=== PATIENT | female | born 1960 | race Caucasian/White ===

== ENCOUNTER 2024-09-21 11:27 | Emergency (ER) | payer BC, SELFPAY ==
[2024-09-21 12:26] LABS: % Basophils 0.5 % (0-2); % Eosinophils 2.2 % (0-6); % Immature Granulocytes 0.4 % (0-0.5); % Lymphocytes 10.8 % (20.5-51.1); % Monocytes 10.7 % (1.7-9.3); % Neutrophils 75.4 % (42.2-75.2); Absolute Eosinophils 0.2 10^3/uL (0-0.7); Absolute Lymphocytes 0.9 10^3/uL (1.2-3.4); Absolute Monocytes 0.9 10^3/uL (0.1-0.6); Absolute Neutrophils 6.4 10^3/uL (1.4-6.5); Hematocrit 40.5 % (37.0-47.0); Hemoglobin 13.4 g/dL (12.0-16.0); Mean Corp Hgb Conc. 33.1 g/dL (33.0-37.0); Mean Corpuscular Hgb 31.5 pg (27.0-31.0); Mean Corpuscular Volume 95.3 fL (81.0-99.0); Mean Platelet Volume 9.9 fL (7.4-10.4); Nucleated Red Blood Cells % 0 %; Platelet Count 265 10^3/uL (130-400); Red Blood Cell Count 4.25 10^6/uL (4.20-5.40); Red Cell Dist. Width 13.6 % (11.5-14.5); White Blood Cell Count 8.5 10^3/uL (4.8-10.8)
[2024-09-21 12:27] LABS: Urine Albumin Trace (Neg - Trace); Urine Bilirubin Negative (Negative); Urine Character Clear (Clear); Urine Color Yellow; Urine Glucose Negative (Negative); Urine Ketone Negative (Negative); Urine Leukocyte 1+ (Negative); Urine Nitrite Negative (Negative); Urine Occult Blood Negative (Negative); Urine Urobilinogen Negative (Neg - 1+)
[2024-09-21 12:35] LABS: ALT (SGPT) 44 U/L (0-35); AST (SGOT) 29 U/L (14-36); Albumin 4.5 g/dl (3.5-5.0); Alkaline Phosphatase 67 U/L (38-126); Blood Urea Nitrogen 18 mg/dl (7-17); Calcium 9.3 mg/dl (8.4-10.2); Carbon Dioxide 27 mmol/L (22-30); Chloride 103 mmol/L (98-107); Glucose 106 mg/dl (70-99); Potassium 4.7 mmol/L (3.5-5.1); Sodium 138 mmol/L (135-145); Total Bilirubin 0.7 mg/dl (0.2-1.3); Total Protein 7.7 g/dl (6.3-8.2); eGFR > 60.00
[2024-09-21 12:45] LABS: Urine Bacteria Few (Negative); Urine Red Blood Cell 0-2 /HPF (0-2); Urine Squamous Cell 16-20 /LPF (Few)
--- NOTE | 2024-09-21 15:05 | ED.GENMED ---
History of Present Illness
General
Chief Complaint: Abdominal Symptoms
Time Seen by Provider: 09/21/24 14:54
History of Present Illness
History of Present Illness:
Patient is a 64-year-old woman with history of A-fib on Eliquis, hypertension, hyperlipidemia presenting to the emergency department left lower quadrant abdominal pain for the past 2 days. Patient states that about a week ago she came from [place]
which is where she lives and had some vague back pain. She thought she has pulled a muscle. That did not resolve however she then developed left lower quadrant pain. She denies any nausea vomiting. She had diarrhea a few days ago after she ate a
meal prep an outside restaurant. She states that since then her bowel movements have been normal. No fevers or chills. No family members with similar symptoms. No recent antibiotics. She did have her gallbladder removed however no other
surgeries. She does state that when her bladder is more full she does have slightly more pain however denies any frequency or urgency.
Phy Exam
Physical Exam
Physical Exam:
GENERAL: in no acute distress
HEENT: normocephalic, extraocular movements intact, moist oral mucosa
NECK: normal inspection
RESPIRATORY: no respiratory distress, clear to auscultation bilaterally
CARDIOVASCULAR: regular rate and rhythm
ABDOMEN/: soft, non-distended, tender to palpation in left lower quadrant, no rebound or guarding, no CVA tenderness
EXTREMITIES: non-tender, no edema/swelling
NEUROLOGIC: awake and alert, moves all extremities
SKIN: warm
Course
Orders/Labs/Results
Orders:
Orders
09/21/24 12:02
Urinalysis Reflex To Culture Urgent
Date Specimen was Collected: 09/21/24
Time Specimen was Collected: 11:57
Urine Microscopic Reflex Cult Urgent
Urine Culture Urgent
LUCY Source: U
Specimen Description:
Date Specimen was Collected: 09/21/24
Time Specimen was Collected: 11:57
09/21/24 12:03
Complete Blood Count/With Diff Urgent
Comprehensive Metabolic Panel Urgent
09/21/24 15:04
CT Abd/pelvis W Iv Cont Urgent
Comment:
Reason For Exam: llq pain
09/21/24 15:40
Urinalysis Reflex To Culture Urgent
Date Specimen was Collected: 09/21/24
Time Specimen was Collected: 15:24
Urine Microscopic Reflex Cult Urgent
Abnormal Lab Results
09/21/24 09/21/24 09/21/24
12:02 12:03 15:40
MCH 31.5 H pg
(27.0-31.0)
Absolute Lymphs (auto) 0.9 L 10^3/uL
(1.2-3.4)
Absolute Monos (auto) 0.9 H 10^3/uL
(0.1-0.6)
Neutrophils % 75.4 H %
(42.2-75.2)
Lymphocytes % 10.8 L %
(20.5-51.1)
Monocytes % 10.7 H %
(1.7-9.3)
BUN 18 H mg/dl
(7-17)
Glucose 106 H mg/dl
(70-99)
ALT 44 H U/L
(0-35)
Leukocyte Esterase Rfl 1+ A Trace A
(Negative) (Negative)
Urine Bacteria (Reflex) Few A
(Negative)
09/21/24 12:03
09/21/24 12:03
Vital Signs
Initial and Last Documented VS:
Initial Vital Signs
Temp Pulse Resp Pulse Ox
98.1 F 87 16 98
09/21/24 11:51 09/21/24 11:51 09/21/24 11:51 09/21/24 11:51
Last Documented Vital Signs
Temp Pulse Resp BP Pulse Ox
98.5 F 73 20 152/76 100
12/24/24 15:44 09/21/24 15:44 09/21/24 15:44 09/21/24 15:44 09/21/24 15:44
MDM/Problems Addressed
Differential Diagnosis Includes:
Patient is a 64-year-old woman presenting to the emergency department 2 days of left lower quadrant abdominal pain. Vitals are unremarkable and exam does show left lower quadrant tenderness to palpation. Differential consists of diverticulitis
versus enteritis versus UTI. Will check blood work CT scan. I did offer pain control as well as antiemetics however patient would hold off at this time
*Critical Care Note
Total Time (30-74mins, 75-104mins- exclusive of procedures): Not Applicable
Update Note
Update Note:
CT scan with diverticulitis. After shared decision making we will start treatment with antibiotics.
ED Attending Note
-
Portions of this chart may have been created with voice recognition software.� Occasional wrong word or��sound alike� substitutions may have occurred due to the inherent limitations of voice recognition software.
Discharge Plan
Departure
Patient Disposition: Home (Routine Discharge)
Date of Disposition: 09/21/24
Time of Disposition: 16:44
Patient with high blood pressure during this ER visit?: Yes
Discharge Problem:
Diverticulitis
Instructions: Diverticulitis - Discharge instructions
Prescriptions:
New
amoxicillin-pot clavulanate 875-125 mg tablet
1 tab PO BID 7 Days Qty: 14 0RF
Referrals:
PRIVATE,PHYSICIAN [Family Provider] -
Activity Restrictions/Additional Instructions:
You were seen in the Emergency Department today for abdominal pain. While you were here we performed blood work, which was reassuring. Please take the antibiotics as prescribed
We would like for you to follow up with your primary care physician for further evaluation. If you experience fever, worsening of your symptoms, or develop any other new or concerning symptoms, please return to the Emergency Department immediately.
Please see the attached sheet for additional information.
Interventions
Interventions:
*Risk Screen - Suicide Last Done: 09/21/24 11:51
*General Assessment Last Done: 09/21/24 15:44
*Neglect/Abuse Screening Last Done: 09/21/24 11:51
ED- Fall Risk Assessment Last Done: 09/21/24 15:44
*ED COVID-19 Vaccine History Last Done: 09/21/24 15:44
EW-Xzizua-Ugqoxygvxg Assessment Last Done: 09/21/24 15:44
Discharge Date and Time
Print Language: GREEK
[2024-09-21 15:26] VITALS: BMI 34.4
[2024-09-21 15:44] VITALS: BP 152/76
[2024-09-21 16:02] LABS: Urine Albumin Negative (Neg - Trace); Urine Bilirubin Negative (Negative); Urine Character Clear (Clear); Urine Color Yellow; Urine Glucose Negative (Negative); Urine Ketone Negative (Negative); Urine Leukocyte Trace (Negative); Urine Nitrite Negative (Negative); Urine Occult Blood Negative (Negative); Urine Urobilinogen Negative (Neg - 1+)
[2024-09-21 16:32] LABS: Urine Red Blood Cell 0-2 /HPF (0-2)
== END 2024-09-21 17:32 | disposition home or self-care (01) ==
LOC: EMR 11:27
PROVIDERS: Emergency Medicine; EMERGENCY PHYSICIAN Student in an Organized Health Care Education/Training Program
DX: K57.32 Diverticulitis of large intestine without perforation or abscess without bleeding (principal); I10 Essential (primary) hypertension; E78.5 Hyperlipidemia, unspecified; I48.91 Unspecified atrial fibrillation; Z79.01 Long term (current) use of anticoagulants; Z90.49 Acquired absence of other specified parts of digestive tract
CPT/HCPCS: 99284; 74177; 80053; 81003; 81015; 85025; 87086; Q9967

== ENCOUNTER 2025-04-13 13:27 | Emergency (ER) | payer MEDICARE, SELFPAY ==
[2025-04-13 13:27] VITALS: BMI 36.0
[2025-04-13 13:34] VITALS: BP 158/77
[2025-04-13 14:18] VITALS: BP 146/76
[2025-04-13 14:35] LABS: Urine Character Clear (Clear)
[2025-04-13 14:36] LABS: Hematocrit 35.4 % (37.0-47.0); Hemoglobin 12.0 g/dL (12.0-16.0); Mean Corp Hgb Conc. 33.9 g/dL (33.0-37.0); Mean Corpuscular Volume 92.4 fL (81.0-99.0); Nucleated Red Blood Cells % 0 %; Platelet Count 220 10^3/uL (130-400); Red Cell Dist. Width 12.9 % (11.5-14.5)
[2025-04-13 14:57] LABS: ALT (SGPT) 31 U/L (0-35); AST (SGOT) 25 U/L (14-36); Albumin 4.0 g/dl (3.5-5.0); Alkaline Phosphatase 77 U/L (38-126); Blood Urea Nitrogen 11 mg/dl (7-17); Calcium 9.3 mg/dl (8.4-10.2); Carbon Dioxide 24 mmol/L (22-30); Chloride 110 mmol/L (98-107); Estimated Creatinine Clearance 105 ml/min; Glucose 111 mg/dl (70-99); Potassium 3.9 mmol/L (3.5-5.1); Sodium 137 mmol/L (135-145); Total Protein 7.0 g/dl (6.3-8.2); eGFR > 60.00
--- NOTE | 2025-04-13 15:26 | ED.GENMED ---
History of Present Illness
General
Chief Complaint: Headache
Source: patient
Exam Limitations: none
Time Seen by Provider: 04/13/25 14:04
Nursing documentation reviewed up to this point in time: agreed with
History of Present Illness
History of Present Illness:
65 yo female w h/o Afib on Eliquis, scheduled for [facility], HTN, HLD, cholecystectomy, presents for pain left side head pain and throbbing behind left eye for past three days. She gets some relief with Advil 400 mg last dose 10 a.m. Has felt 'a
little' nausea at times, none now.
Pt is visiting from [place], staying with her daughter for 2 months, helping take care of her 2 toddler children. No recent head injury. No history of headaches. Denies change in vision. Denies weakness, numbness, tingling in extremities.
Has also been urinating a lot more than usual lately
Meds:
Zetia
Amlodipine 5 mg
Eliquis
Metoprolol 12.5 mg prn palpitation.
Past History
Past History
ED Past Medical History: Arrthythmia (A-fib on Eliquis), Hypercholesterolemia and NIDDM
ED Past Surgical History: Cardiac (Cardiac ablation) and Cholecystectomy
Social History
Tobacco: Non-smoker
Alcohol: None
Personal: Single
Living: alone
Review of Systems
Review of Systems
Allergies reviewed?: Yes
All Other Systems: ROS reviewed and negative except as documented in HPI and ROS
Respiratory: Denies trouble breathing
Cardiac: Denies chest pain
ABD/GI: Reports nausea (Mild intermittent); Denies abdominal pain or vomiting
: Reports frequency; Denies dysuria
Musculoskeletal: Reports no symptoms
Skin: Reports no symptoms
Neurological: Reports headache; Denies dizzy, weakness or numbness
Phy Exam
Physical Exam
Physical Exam:
GENERAL: No acute distress. A&Ox3.
CONSTITUTIONAL: Afebrile.
Head: No scalp tenderness to palpation.
EYES: clear, conjunctivae normal
ENMT: moist mucus membranes, Pharynx nl
RESPIRATORY: Regular respirations, nonlabored, lungs clear.
CARDIOVASCULAR: Regular rate and rhythm, no murmurs, no rubs.
GI: Soft, nontender, normal BS
MUSCULOSKELETAL: Moves with ease. Well perfused.
SKIN: Warm, dry, pink
PSYCH: Normal mood and affect. Well kept, interactive and appropriate
NEUROLOGIC: Awake, alert and oriented. Speech clear. Cranial nerves II through XII intact. Finger-nose intact. Ambulates well with steady gait. No focal neurological deficits
Course
Orders/Labs/Results
Orders:
Orders
04/13/25 14:25
CT Head W/o Iv Contrast Urgent
Comment:
Reason For Exam: left parietal head pain
04/13/25 14:27
Complete Blood Count/With Diff Urgent
Comprehensive Metabolic Panel Urgent
Lyme Progressive Urgent
Urinalysis Reflex To Culture Urgent
Date Specimen was Collected: 04/13/25
Time Specimen was Collected: 14:26
04/13/25 16:17
Acetaminophen [Tylenol] 1,000 mg PO NOW STA
Abnormal Lab Results
04/13/25
14:27
RBC 3.83 L 10^6/uL
(4.20-5.40)
Hct 35.4 L %
(37.0-47.0)
MCH 31.3 H pg
(27.0-31.0)
MPV 10.6 H fL
(7.4-10.4)
Absolute Neuts (auto) 7.5 H 10^3/uL
(1.4-6.5)
Absolute Lymphs (auto) 1.0 L 10^3/uL
(1.2-3.4)
Absolute Monos (auto) 1.0 H 10^3/uL
(0.1-0.6)
Neutrophils % 77.3 H %
(42.2-75.2)
Lymphocytes % 10.8 L %
(20.5-51.1)
Monocytes % 10.1 H %
(1.7-9.3)
Chloride 110 H mmol/L
(98-107)
Glucose 111 H mg/dl
(70-99)
04/13/25 14:27
04/13/25 14:27
Vital Signs
Initial and Last Documented VS:
Initial Vital Signs
Temp Pulse Resp BP Pulse Ox
98.9 F 80 16 158/77 98
04/13/25 13:34 04/13/25 13:34 04/13/25 13:34 04/13/25 13:34 04/13/25 13:34
Last Documented Vital Signs
Temp Pulse Resp BP Pulse Ox
98.1 F 70 16 146/76 90
04/13/25 16:00 04/13/25 16:00 04/13/25 16:00 04/13/25 14:18 04/13/25 17:00
MDM/Problems Addressed
Differential Diagnosis Includes:
Stress/tension headache, migraine, brain tumor, hemorrhage
MDM/Problems Addressed:
65 yo female w h[facility] on [facility], scheduled for [facility], HTN, HLD, cholecystectomy, presents for pain left side head pain and throbbing behind left eye for past three days. She gets some relief with Advil 400 mg last dose 10 a.m. Has felt 'a
little' nausea at times, none now.
Pt is visiting from [place], staying with her daughter for 2 months, helping take care of her 2 toddler children. No recent head injury. No history of headaches. Denies change in vision. Denies weakness, numbness, tingling in extremities.
Has also been urinating a lot more than usual lately
No infectious symptoms
CBC with no clinically significant abnormality
CMP normal
UA negative
4:15 PM:
Pt updated on results and plan
Patient is awaiting head CT, headache is now 5/10, Tylenol ordered
6:00 p.m.
Pt states headache is now minimal , Tylenol helped
Head CT neg
Copy of report given to pt
Referred to Neurology as needed
Pt ambulated out with normal gait at discharge
*Pulse Oximetry
SaO2: 93
Oxygen Mode of Delivery: Room air
Patient hypoxic: not evaluated
*Critical Care Note
Total Time (30-74mins, 75-104mins- exclusive of procedures): Not Applicable
ED Attending Note
-
Portions of this chart may have been created with voice recognition software.� Occasional wrong word or��sound alike� substitutions may have occurred due to the inherent limitations of voice recognition software.
Discharge Plan
Departure
Patient Disposition: Home (Routine Discharge)
Date of Disposition: 04/13/25
Time of Disposition: 18:02
Patient with high blood pressure during this ER visit?: No
Condition: Good
Discharge Problem:
Headache
Instructions: Migraines (DC), Headache, Adult (DC)
Prescriptions:
No Action
amoxicillin-pot clavulanate 875-125 mg tablet
1 tab PO BID 7 Days Qty: 14 0RF
Referrals:
Jonel Hutchinson MD [Active, Neurology] - As needed
NONE,* [Family Provider, Internal Medicine]
Activity Restrictions/Additional Instructions:
As we discussed, your workup here today shows nothing worrisome. Your CAT scan shows no abnormality.
Tylenol 1000 mg up to 3 times a day as needed for headache
Make an appointment with a neurologist if your headaches persist.
Interventions
Interventions:
*Risk Screen - Suicide Last Done: 04/13/25 13:34
*General Assessment Last Done: 04/13/25 13:34
*Neglect/Abuse Screening Last Done: 04/13/25 13:34
*ED- Fall Risk Assessment Last Done: 04/13/25 13:34
*ED COVID-19 Vaccine History Last Done: 04/13/25 13:34
*Nursing Disposition Last Done: 04/13/25 18:12
ED- Neurological Assessment Last Done: 04/13/25 13:44
Discharge Date and Time
Discharge Date/Time: 04/13/25 18:13
Print Language: SCOTTISH
[2025-04-13] MEDS: TYLENOL 1000 MG PO (16:36)
[2025-04-14 12:46] LABS: Lyme Antibody Screen, EIA Negative (Negative)
== END 2025-04-13 18:13 | disposition home or self-care (01) ==
LOC: EMR 13:27
PROVIDERS: Registered Nurse; EMERGENCY PHYSICIAN Emergency Medicine
DX: R51.9 Headache, unspecified (principal); Z79.01 Long term (current) use of anticoagulants; E11.9 Type 2 diabetes mellitus without complications; E78.00 Pure hypercholesterolemia, unspecified; Z90.49 Acquired absence of other specified parts of digestive tract
CPT/HCPCS: 99284; 70450; 80053; 81003; 85025; 86618

== ENCOUNTER 2025-05-04 23:53 | Inpatient (IN) | payer MEDICARE, SELFPAY ==
[2025-05-04] VITALS (16 sets, daily range): BP systolic 117–145; BP diastolic 77–132; BMI 35.6
[2025-05-04 16:58] LABS: Hematocrit 38.7 % (37.0-47.0); Hemoglobin 12.7 g/dL (12.0-16.0); Mean Corp Hgb Conc. 32.8 g/dL (33.0-37.0); Mean Corpuscular Volume 93.0 fL (81.0-99.0); Nucleated Red Blood Cells % 0 %; Platelet Count 270 10^3/uL (130-400); Red Cell Dist. Width 12.9 % (11.5-14.5)
[2025-05-04 17:12] LABS: ALT (SGPT) 40 U/L (0-35); AST (SGOT) 31 U/L (14-36); Albumin 4.2 g/dl (3.5-5.0); Alkaline Phosphatase 78 U/L (38-126); Blood Urea Nitrogen 18 mg/dl (7-17); Calcium 9.1 mg/dl (8.4-10.2); Carbon Dioxide 23 mmol/L (22-30); Chloride 109 mmol/L (98-107); Estimated Creatinine Clearance 89 ml/min; Glucose 97 mg/dl (70-99); Lipase 136 U/L (23-300); Potassium 4.3 mmol/L (3.5-5.1); Sodium 140 mmol/L (135-145); Total Protein 7.4 g/dl (6.3-8.2); eGFR > 60.00
--- NOTE | 2025-05-04 17:49 | ED.GENMED ---
History of Present Illness
<Fabiola Luna PA-C - Last Filed: 05/05/25 00:18>
General
Chief Complaint: Heart Rate Problem
Source: patient
Exam Limitations: none
Time Seen by Provider: 05/04/25 17:24
Nursing documentation reviewed up to this point in time: agreed with
History of Present Illness
History of Present Illness:
Patient is a 65 year old female w/ history atrial fibrillation s/p ablation on eliquis, HTN, HLD who presents to the emergency department with lower abdominal pain x 1 week. Patient states that she started with left lower abdominal pain about 1
week ago which was initially intermittent. Given her history of diverticulitis, she did attempt to follow a liquid diet for a few days and initially felt symptoms were improving however over the past 2 days symptoms have began to worsen again. She
describes a significant discomfort in her entire lower abdomen. She also reports mild nausea however has not had any episodes of vomiting. No known fever.
Patient denies any chest pain, shortness of breath, or palpitations. She does state that her heart rate was elevated this morning which occasionally happens when she is sick or in pain.
Patient does have a history of atrial fibrillation s/p ablation in June. She is currently anticoagulated on Eliquis and compliant with medication.
Past History
<Fabiola Luna PA-C - Last Filed: 05/05/25 00:18>
Past History
ED Past Medical History: Arrthythmia (A-fib on Eliquis), Hypercholesterolemia and NIDDM
ED Past Surgical History: Cardiac (Cardiac ablation) and Cholecystectomy
Social History
Tobacco: Non-smoker
Alcohol: None
Personal: Single
Living: alone
Review of Systems
<Fabiola Luna PA-C - Last Filed: 05/05/25 00:18>
Review of Systems
Allergies reviewed?: Yes
All Other Systems: ROS reviewed and negative except as documented in HPI and ROS
Phy Exam
<Fabiola Luna PA-C - Last Filed: 05/05/25 00:18>
Physical Exam
Physical Exam:
Vitals: Tachycardic, otherwise vital signs stable. Afebrile
General: Patient is mildly uncomfortable due to pain.
Skin: Warm and dry, no rashes or lesions
Head: Normocephalic, atraumatic
Eyes: Sclera nonicteric.
Throat: Protecting airway
Neck: Normal ROM, no cervical spine tenderness, no meningismus
Cardiac: Tachycardic, irregularly irregular rhythm, no murmurs.
Pulm: Normal respiratory effort, no wheezes, rales, rhonchi heard on exam
Abdomen: Abdomen soft. Moderate tenderness in left lower abdomen/suprapubic region with voluntary guarding.
Extremities: No evidence of cyanosis or edema.
Neuro: AAOx3. Grossly intact.
Psychiatric: Normal affect.
Course
<Fabiola Luna PA-C - Last Filed: 05/05/25 00:18>
Orders/Labs/Results
Orders:
Orders
05/04/25 16:19
EKG [Electrocardiogram (*1)] Urgent
Reason for Study: Tachycardia
05/04/25 16:20
EKG- Treatment ONCE
05/04/25 16:45
Complete Blood Count/With Diff Urgent
Comprehensive Metabolic Panel Urgent
Lipase Urgent
TSH Reflex To Free T4 Urgent
05/04/25 17:38
CT Abd/pelvis W Iv Cont Urgent
Comment: hx diverticulitis
Reason For Exam: LLQ pain, +nausea
HYDROmorphone [Dilaudid] 0.5 mg IV NOW STA
05/04/25 18:08
Urinalysis Reflex To Culture Urgent
Date Specimen was Collected: 05/04/25
Time Specimen was Collected: 16:20
Urine Microscopic Reflex Cult Urgent
Urine Culture Urgent
LUCY Source: U
Specimen Description:
Date Specimen was Collected: 05/04/25
Time Specimen was Collected: 16:20
05/04/25 18:26
Electrocardiogram (*1) Urgent
Reason for Study: Palpitations
EKG- Treatment ONCE
05/04/25 18:27
Diltiazem HCl [Cardizem] 10 mg IV NOW STA
05/04/25 19:53
Metoprolol [Lopressor] 5 mg IV NOW STA
05/04/25 20:08
Metoprolol Xl [Toprol Xl] 12.5 mg PO NOW STA
05/04/25 21:06
Acetaminophen [Tylenol] 650 mg PO NOW STA
HYDROmorphone [Dilaudid] 0.5 mg IV NOW STA
05/04/25 21:43
Piperacillin/Tazo 3.375 Gram [Zosyn] 3.375 gram in 50 ml IV NOW
05/04/25 21:45
Diltiazem 125 mg/125 ml Nss [Cardizem] 125 mg in 125 ml IV PER PROTOCOL
Initial dose in mg/hr, then titrate:: 5
Titrate to keep:: Heart rate 80-100 bpm
Titrate by mg/hr:: 5 mg/hr
Frequency of titrations (minutes):: 15
Maximum dose in mg/hr:: 15
05/04/25 22:40
Admit/Transfer Patient As Directed
Co-Sign Provider:
Level of Care: Inpatient admission
Assign to:: IMU- Intermediate Care
Physician / Group: clarice roth
Diagnosis: afib rvr/ hx aib/flutter, acute sigmoid colitis volume depletion
Reason for Hospitalization: afib rvr/ hx aib/flutter, acute sigmoid colitis volume depletion
Expected length of stay greater than two midnights?: Yes
ELOS- Estimated Length of Stay in days: 4
I certify the patient meets the requirements for IP care: Yes
Code Status As Directed
Resuscitation Status: Full Code
05/04/25 22:43
PRN Pain Medication Management As Directed
May give lesser potent ordered pain med per pt: Yes
preference::
Protocol:: Medication orders for pain may be administered in a
manner that supports deferring to patient preference
when the pt is:
- Requesting an ordered lesser potent pain medication.
Least to most potent pain medications are defined
as: acetaminophen < NSAID < tramadol < opioids
(morphine, oxycodone, hydromorphone).
- Requesting a lesser dose of the same medication IF
ORDERED.
- Requesting a less intrusive route of administration
if both routes are prescribed by the provider (PO <
IV).
05/04/25 22:45
CARDIOLOGY CONSULT Routine
Consulting Provider: Brayden Joe
Was physician already notified: No
Reason for consult: afib with rvr
Consult Notification Routine
Specialty to Notify: Cardiology
0.9% Sodium Chloride 1000 ml [Nss] 1,000 ml IV 1,000 mls/hr
05/04/25 23:49
EKG [Electrocardiogram (*1)] Urgent
Reason for Study: Atrial Fibrillation
EKG- Treatment ONCE
Abnormal Lab Results
05/04/25 05/04/25
16:45 18:08
WBC 11.1 H 10^3/uL
(4.8-10.8)
RBC 4.16 L 10^6/uL
(4.20-5.40)
MCHC 32.8 L g/dL
(33.0-37.0)
Absolute Neuts (auto) 8.3 H 10^3/uL
(1.4-6.5)
Absolute Monos (auto) 1.1 H 10^3/uL
(0.1-0.6)
Lymphocytes % 13.1 L %
(20.5-51.1)
Monocytes % 9.6 H %
(1.7-9.3)
Chloride 109 H mmol/L
(98-107)
BUN 18 H mg/dl
(7-17)
ALT 40 H U/L
(0-35)
Urine Ketones 1+ A
(Negative)
Leukocyte Esterase Rfl 1+ A
(Negative)
05/04/25 16:45
05/04/25 16:45
Vital Signs
Initial and Last Documented VS:
Initial Vital Signs
Temp Pulse Resp BP Pulse Ox
99 F 148 18 119/86 99
05/04/25 16:17 05/04/25 16:17 05/04/25 16:17 05/04/25 16:17 05/04/25 16:17
Last Documented Vital Signs
Temp Pulse Resp BP Pulse Ox
100.0 F 114 20 119/86 93
05/04/25 21:24 05/04/25 22:45 05/04/25 22:45 05/04/25 22:30 05/04/25 23:04
<Juanita Velasquez MD - Last Filed: 05/04/25 20:03>
Orders/Labs/Results
Orders:
Orders
05/04/25 16:19
EKG [Electrocardiogram (*1)] Urgent
Reason for Study: Tachycardia
05/04/25 16:20
EKG- Treatment ONCE
05/04/25 16:45
Complete Blood Count/With Diff Urgent
Comprehensive Metabolic Panel Urgent
Lipase Urgent
TSH Reflex To Free T4 Urgent
05/04/25 17:38
CT Abd/pelvis W Iv Cont Urgent
Comment: hx diverticulitis
Reason For Exam: LLQ pain, +nausea
HYDROmorphone [Dilaudid] 0.5 mg IV NOW STA
05/04/25 18:08
Urinalysis Reflex To Culture Urgent
Date Specimen was Collected: 05/04/25
Time Specimen was Collected: 16:20
Urine Microscopic Reflex Cult Urgent
Urine Culture Urgent
LUCY Source: U
Specimen Description:
Date Specimen was Collected: 05/04/25
Time Specimen was Collected: 16:20
05/04/25 18:26
Electrocardiogram (*1) Urgent
Reason for Study: Palpitations
EKG- Treatment ONCE
05/04/25 18:27
Diltiazem HCl [Cardizem] 10 mg IV NOW STA
05/04/25 19:53
Metoprolol [Lopressor] 5 mg IV NOW STA
05/04/25 20:08
Metoprolol Xl [Toprol Xl] 12.5 mg PO NOW STA
05/04/25 21:06
Acetaminophen [Tylenol] 650 mg PO NOW STA
HYDROmorphone [Dilaudid] 0.5 mg IV NOW STA
05/04/25 21:43
Piperacillin/Tazo 3.375 Gram [Zosyn] 3.375 gram in 50 ml IV NOW
05/04/25 21:45
Diltiazem 125 mg/125 ml Nss [Cardizem] 125 mg in 125 ml IV PER PROTOCOL
Initial dose in mg/hr, then titrate:: 5
Titrate to keep:: Heart rate 80-100 bpm
Titrate by mg/hr:: 5 mg/hr
Frequency of titrations (minutes):: 15
Maximum dose in mg/hr:: 15
05/04/25 22:40
Admit/Transfer Patient As Directed
Co-Sign Provider:
Level of Care: Inpatient admission
Assign to:: IMU- Intermediate Care
Physician / Group: adebamiro,adedotun
Diagnosis: afib rvr/ hx aib/flutter, acute sigmoid colitis volume depletion
Reason for Hospitalization: afib rvr/ hx aib/flutter, acute sigmoid colitis volume depletion
Expected length of stay greater than two midnights?: Yes
ELOS- Estimated Length of Stay in days: 4
I certify the patient meets the requirements for IP care: Yes
Code Status As Directed
Resuscitation Status: Full Code
05/04/25 22:43
PRN Pain Medication Management As Directed
May give lesser potent ordered pain med per pt: Yes
preference::
Protocol:: Medication orders for pain may be administered in a
manner that supports deferring to patient preference
when the pt is:
- Requesting an ordered lesser potent pain medication.
Least to most potent pain medications are defined
as: acetaminophen < NSAID < tramadol < opioids
(morphine, oxycodone, hydromorphone).
- Requesting a lesser dose of the same medication IF
ORDERED.
- Requesting a less intrusive route of administration
if both routes are prescribed by the provider (PO <
IV).
05/04/25 22:45
CARDIOLOGY CONSULT Routine
Consulting Provider: Brayden Joe
Was physician already notified: No
Reason for consult: afib with rvr
Consult Notification Routine
Specialty to Notify: Cardiology
0.9% Sodium Chloride 1000 ml [Nss] 1,000 ml IV 1,000 mls/hr
05/04/25 23:49
EKG [Electrocardiogram (*1)] Urgent
Reason for Study: Atrial Fibrillation
EKG- Treatment ONCE
Abnormal Lab Results
05/04/25 05/04/25
16:45 18:08
WBC 11.1 H 10^3/uL
(4.8-10.8)
RBC 4.16 L 10^6/uL
(4.20-5.40)
MCHC 32.8 L g/dL
(33.0-37.0)
Absolute Neuts (auto) 8.3 H 10^3/uL
(1.4-6.5)
Absolute Monos (auto) 1.1 H 10^3/uL
(0.1-0.6)
Lymphocytes % 13.1 L %
(20.5-51.1)
Monocytes % 9.6 H %
(1.7-9.3)
Chloride 109 H mmol/L
(98-107)
BUN 18 H mg/dl
(7-17)
ALT 40 H U/L
(0-35)
Urine Ketones 1+ A
(Negative)
Leukocyte Esterase Rfl 1+ A
(Negative)
05/04/25 16:45
05/04/25 16:45
Vital Signs
Initial and Last Documented VS:
Initial Vital Signs
Temp Pulse Resp BP Pulse Ox
99 F 148 18 119/86 99
05/04/25 16:17 05/04/25 16:17 05/04/25 16:17 05/04/25 16:17 05/04/25 16:17
Last Documented Vital Signs
Temp Pulse Resp BP Pulse Ox
100.0 F 114 20 119/86 93
05/04/25 21:24 05/04/25 22:45 05/04/25 22:45 05/04/25 22:30 05/04/25 23:04
<Fabiola Luna PA-C - Last Filed: 05/05/25 00:18>
MDM/Problems Addressed
Differential Diagnosis Includes:
Not limited to: Diverticulitis, bowel perforation, intra-abdominal abscess, appendicitis, pyelonephritis, acute dehydration, cardiac arrhythmia, etc.
MDM/Problems Addressed:
65-year-old female presenting with 1 week of lower abdominal discomfort and found to have heart rate of 140s on arrival to ED. No chest pain, shortness of breath. She does have history of atrial fibrillation and is currently anticoagulated.
Follows with cardiology in [place]. No associated fever or vomiting at home. Vital significant for tachycardia, however is normotensive and stable. Basic labs sent prior to my evaluation significant for mild leukocytosis of 11.1. Chemistry
unremarkable. Initial EKG obtained possibly demonstrating an SVT however while in patient's room�it appeared to be more irregular and consistent with atrial fibrillation. An EKG was repeated which does confirm atrial fibrillation with rapid
ventricular response.
Patient has 2 independent problems today. In regards of abdominal pain�will check urinalysis and CT scan for further evaluation. Will treat pain and give IV fluids. Atrial fibrillation possibly triggered by dehydration. Will attempt rate control
with Cardizem bolus and reassess.
Update: Urine shows no evidence of infection. CT scan reveals acute uncomplicated sigmoid diverticulitis. From a diverticulitis perspective�feel patient could be safely managed on oral outpatient antibiotics. However�patient remains tachycardic
in 120s. After discussion with attending physician�will give additional dose of IV Lopressor, oral Lopressor and reassess.
Update: Patient with very little to no response following Lopressor. Her heart rate is back in 140s. At this point�cardioversion was offered to patient versus admission for Cardizem drip for rate control. Patient has also required multiple rounds
of IV pain medicine for abdominal discomfort. Shared decision making utilized�plan to admit for IV antibiotics, pain control as well as Cardizem drip for heart rate management. Cardizem drip initiated in ED. patient excepted to hospitalist service
in stable condition.
Chronic conditions affecting care:
History of diverticulitis, atrial fibrillation on Eliquis
Acute Exacerbation and/or Progression of Chronic Illness:
Acute sigmoid diverticulitis, atrial fibrillation with RVR
<Fabiola Luna PA-C - Last Filed: 05/05/25 00:18>
*Radiology
Radiology exam reviewed: radiology read reviewed
*Pulse Oximetry
SaO2: 98
Oxygen Mode of Delivery: Room air
Patient hypoxic: no
*EKG
Interpreted by ED Provider?: Yes
EKG Intrepretation Date: 05/04/25
Interpretation: abnormal
Comparison EKG: changes noted
Heart Rate: 133
Rate: tachycardiac
Rhythm: a-fib
[place]: normal axis
Interval: normal QT interval
QRS Pattern: left vent hypertrophy
Ischemia: non-specific ST changes
*Weeder Interpretation
Rate: tachycardiac
Interpretation: abnormal
Heart Rate: 141
Rhythm: a-fib
*Critical Care Note
Total Time (30-74mins, 75-104mins- exclusive of procedures): 35
comment:
Critical care statement: A total of 35 minutes of critical care time was provided for this patient. This includes management of unstable vital signs, evaluation of the patient at bedside, reviewing the patient's pertinent medical records, discussion
with consultants, review of old EKGs and review of pertinent medical records. This time with separate from time utilized to perform the aforementioned documented procedures
<Fabiola Luna PA-C - Last Filed: 05/05/25 00:18>
Patient Management
Discussion with other providers: Hospitalist
Escalation/DeEscalation of care consider admission/obs:
Admit for IV antibiotics, rate control for A-fib with RVR
ED Attending Note
<Fabiola Luna PA-C - Last Filed: 05/05/25 00:18>
-
Portions of this chart may have been created with voice recognition software.� Occasional wrong word or��sound alike� substitutions may have occurred due to the inherent limitations of voice recognition software.
<Juanita Velasquez MD - Last Filed: 05/04/25 20:03>
ED Attending Note
Patient seen and examined by attending physician: Yes
I performed the substantive portion of visit, reviewed & personally made and approve the management plan that is documented in note by myself or BIANCA.: Yes
ED Attending Note:
65 yr old female with ower abd pain without asso cn/v/d. No fever. Incidentally noted to be in afib with rvr....on full anticoagulation. Dx'd with divertic here, no abscess/perf. Well appearing, abd soft with mild ttp, no r/g.Will control rate
with lopressor, abx, likey d/c.
Discharge Plan
Departure
Patient Disposition: Admit
Date of Disposition: 05/04/25
Time of Disposition: 21:47
Presentation/result/management discussed w/ accepting MD/DO: Hospitalist
Discharge Problem:
Acute diverticulitis, Atrial fibrillation with rapid ventricular response
Interventions
Interventions:
*Risk Screen - Suicide Last Done: 05/04/25 16:17
*General Assessment Last Done: 05/04/25 16:17
*Neglect/Abuse Screening Last Done: 05/04/25 16:17
*ED- Fall Risk Assessment Last Done: 05/04/25 16:17
*ED COVID-19 Vaccine History Last Done: 05/04/25 16:17
*Nursing Disposition Last Done: 05/05/25 00:10
UA-Akeklq-Aidgvadjqo Assessment Last Done: 05/04/25 18:00
ED- Cardiac Assessment Last Done: 05/04/25 18:00
ED- Pulmonary Assessment Last Done: 05/04/25 18:00
Discharge Date and Time
Discharge Date/Time: 05/05/25 00:11
[2025-05-04] MEDS: DILAUDID 0.5 MG IV ×2 (18:09→21:20)
[2025-05-04 18:42] LABS: Urine Character Clear (Clear)
[2025-05-04 18:55] LABS: Urine Squamous Cell 0-2 /LPF (Few)
[2025-05-04 18:56] LABS: Urine Red Blood Cell 0-2 /HPF (0-2); Urine White Cell 0-2 /HPF (0-5)
--- NOTE | 2025-05-04 19:00 | EDRN ---
Report received, patient is in CT once back will get medications for HR being elevated
[2025-05-04] MEDS: CARDIZEM 10 MG IV (19:19)
[2025-05-04] MEDS: LOPRESSOR 5 MG IV (20:16)
[2025-05-04] MEDS: TOPROL XL 12.5 MG PO (20:28)
[2025-05-04] MEDS: TYLENOL 650 MG PO (21:19)
--- NOTE | 2025-05-04 21:42 | EDRN ---
Patients heart rate remains elevated, patients pain is increased and has a temp of 100.0, updated PA caring for her meds ordered and given to patient, PA back in at bedside updating patient on plan to stay in the hospital
[2025-05-04] MEDS: CARDIZEM 125 IV (21:59)
[2025-05-04] MEDS: ZOSYN 50 IV (21:59)
--- NOTE | 2025-05-04 22:01 | W.PN.UPDATE ---
Update Note
Progress Note Update
Patient seen in conjunction with JENNIFER. I agree with her findings on histor and physical and concur with the assessment and plan.
Briefly, this is a 65 y.o female with hx of afib s/p ablation, HTN, HLD presenting to ED with 1 week history of abdominal pain. She reports intermittent abdominal pain in the left lower quadrant. Reminiscent of prior episode of diverticulitis so
she started on liquid diet. However symptoms have worsened the last 2 dyas. Mild nausea without vomiting. No fevers or chills. She notes elevated pulse rate without palpitations, dizziness, cp, lightheadedness or shortness of breath. S/P
ablation last june and takes apixaban.
In Ed she was afebrile, bp 127/94, heart rate 144, O2 sat 100% on RA.
CBC shows a white count of 11.1 otherwise unremarkable. Electrolytes BUN/creatinine were normal. UA was unremarkable. CT of the abdomen pelvis showed acute sigmoid diverticulitis without any perforation or or abscess.
Patient offered cardioversion in the emergency department but she refused. Giving home dose of metoprolol, IV metoprolol and ultimately started on diltiazem bolus and a drip.
Assessment and plan
65-year-old with recurrent episode of diverticulitis also has history of atrial fibrillation and is found to be in A-fib RVR, she is hemodynamically stable afebrile and nontoxic-appearing.
AFIB RVR - Possibly triggered by acute infection.
- admit to IMU
- treat infection as below
- hydration
- continue diltiazem IV gtt for now
- check bnp
- NPO after midnight
- has been on eliquis for several months, so likely can tolerate cardioversion without CARISSA
- continue apixaban
- cardiology consult
Acute diverticultitis - Uncomplicated
- continue abx for now
- npo for now
- antiemetics and pain control
- IV fluids
DVT PPX- on apixaban
Code status - Full Code
--- NOTE | 2025-05-04 22:05 | HPS.HSE ---
Family Physician
-
Family Physician: * NONE
Chief Complaint
-
Left-sided lower abdominal pain, nausea
History of Present Illness
65-year-old female complaining of lower abdominal pain x 1 week increased on the left side that has been intermittent. Due to her pain she is try to follow a liquid diet for the past few days felt symptoms slightly improving but then became worse
over the past 2 days she reports nausea but denies any fever or diarrhea. In the ER she had low-grade temp of 100 F she was also noted to be in A-fib with RVR heart rate 144 not responding to IV Cardizem she was given additional dose of IV
Lopressor and p.o. metoprolol. She declined cardioversion in ER. She appears somewhat volume depleted we will start IV normal saline 1 L bolus. She had history of cardiac ablation right sided/left-sided atrial flutter /Pulmonary vein isolation
for A-fib June 2024. She is scheduled for Watchman device on September 16 by her coverage specialist in [facility]. She has past medical history of A-fib/A-fib ablation, HTN, HLD, diverticulosis/diverticulitis, class II obesity.
Medical History
Past Medical History
Past Medical History: Reports Other
Additional Past Medical History:
A-fib/atrial flutter ablation June 2024
HTN
HLD
Diverticulosis/diverticulitis
Daily alcohol use 1 glass wine
Past Surgical History: Reports Other
Additional Past Surgical History:
Cholecystectomy
cardiac ablation right sided/left-sided atrial flutter /Pulmonary vein isolation for A-fib June 2024.
Loop recorder
Social History
Alcohol: Daily (1 glass wine)
Drug: None
Personal: Single
Living: Alone
Employment: Retired
Family History
Family History: Other (Sister history of diverticulitis requiring bowel resection)
Allergies / Home Medications
Allergies reflects when Allergies were last updated in [facility].
Home Medications with original date entered in [facility]
Allergy/Medication List:
Allergies
Allergy/AdvReac Type Severity Reaction Status Date / Time
levofloxacin (From Levaquin) Allergy Unknown Verified 05/04/25 16:19
metronidazole (From Flagyl) Allergy Unknown Verified 05/04/25 16:19
Home Medications
acetaminophen 325 mg tablet (Tylenol) 650 mg PO Q6HPRN PRN mild pain 05/04/25
amlodipine 5 mg tablet (Norvasc) 5 mg PO DAILY 05/04/25
apixaban 5 mg tablet (Eliquis) 5 mg PO BID 05/04/25
ezetimibe 10 mg tablet (Zetia) 10 mg PO QPM 05/04/25
metoprolol succinate 25 mg tablet,extended release 24 hr (Toprol XL) 12.5 mg PO DAILYPRN PRN fast heart beat? 05/04/25
Review of Systems
-
History Source: Patient and Family (Daughter at bedside)
A 12 point ROS was completed and negative except as noted: Yes
Constitutional: Reports Fever (100 F); Denies Fatigue
EENT: Denies Sore Throat or Runny Nose
Respiratory: Denies Cough or Trouble Breathing
Cardiac: Denies Chest Pain, Diaphoresis, Palpitations or Syncope
Abdomen/GI: Reports Abdominal Pain (Left lower quadrant) and Nausea; Denies Vomiting or Diarrhea
: Denies Dysuria, Frequency, Flank Pain or Incontinence
Musculoskeletal: Denies Joint Pain or Edema
Skin: Denies Itching or Rash
Neurological: Denies Dizzy, Headache or Weakness
Endocrine: Reports No Symptoms
Hematologic/Lymphatic: Reports No Symptoms
Psych: Reports Calm
Physical Exam
Vital Signs
Vital Signs
Temp Pulse Resp BP Pulse Ox
100.0 F 144 26 127/94 97
05/04/25 21:24 05/04/25 21:15 05/04/25 21:15 05/04/25 21:00 05/04/25 21:15
Physical Exam
General: Conversant, Fever (100 F) and Obese; No Chills
HEENT: NormoCephalic, Anicteric, PERRLA, [place] Conjunctivae, No Ptosis and Other (Dry oral mucosa)
Respiratory: Clear; No Wheezes, Rales or Rhonchi
Cardiac: S1/S2 and Irregular Rhythm (A-fib with RVR 144 bpm on monitor); No Murmur, Rub or Gallop
Breast: Deferred by me
GI: Soft, Non Distended, Normal Bowel Sounds and Tender (Left lower quadrant)
Rectal: Deferred by Provider
Genito-urinary: Deferred by me
Musculoskeletal: No Clubbing, No Cyanosis and No Edema
Skin: Warm and Dry; No Rash or Jaundice
Neuro: AO x 3, No Motor Deficits, Nonfocal/grossly intact, Cranial Nerves Intact and No Sensory Deficits; No Slurred Speech, Facial Droop, Tremors or Sedated
Psych: Calm
Laboratory Results
-
05/04/25 16:45
05/04/25 16:45
Laboratory Results
Total Bilirubin 0.5 mg/dl (0.2-1.3) 05/04/25 16:45
AST 31 U/L (14-36) 05/04/25 16:45
ALT 40 U/L (0-35) H 05/04/25 16:45
Alkaline Phosphatase 78 U/L (38-126) 05/04/25 16:45
Lipase 136 U/L (23-300) 05/04/25 16:45
Data Reviewed
-
Lab Data: Labs Reviewed by me
Impression/Plan
-
Impression/plan:
Admit to IMU
#A-fib with RVR/A-fib/a flutter Hx-suspect A-fib with RVR due to volume depletion
#Past history of cardiac ablation right sided/left-sided atrial flutter /Pulmonary vein isolation for A-fib June 2024
- Continue Eliquis 5 mg twice daily
- IV Cardizem bolus followed by Cardizem drip
- Patient given IV Lopressor in addition to Toprol XL 12.5 mg for rate control heart rate 144
- Was due for Watchman device in a few months by coverage specialist in [place]
- Check 2D echo
-Consult CBC cardiology
Per patient portal on phone([employer]
TTE July 22, 2024: EF 55-60%, normal LVSF/LVS no wall abnormality, mild mitral regurg, mild tricuspid regurg
07/21/2024 1. successful pulmonary vein isolation for A-fib.
2. Successful ablation for right sided/left sided atrial flutter
#Acute sigmoid diverticulitis
History of diverticulosis/diverticulitis
WBC 11.1 no shift, temp 100 F
- IV Dilaudid, [place] moderate pain, Tylenol fever
- IV Zofran
- IV Zosyn
- IV NSS 1 L followed by 100 cc/h
- Follow CBC, CMP
CT abdomen pelvis with IV contrast:
Acute sigmoid diverticulitis without evidence of perforation or pericolonic abscess.
# HTN benign
BP 120/86
-Continue on Norvasc 5 mg daily
#HLD
-Continue Zetia 10 mg every afternoon
#Class II obesity�BMI 35.6
DVT prophylaxis
Continue ROLL FORGER Eliquis 5 mg twice daily
Full code
--- NOTE | 2025-05-04 22:15 | EDRN ---
Hospitalist at bedside working on admission
[2025-05-04] MEDS: NSS 1000 IV (22:38)
--- NOTE | 2025-05-04 23:15 | EDRN ---
Patient ambulated to the restroom and back in bed resting comfortably at this time.
[2025-05-05] VITALS (24 sets, daily range): BP systolic 90–143; BP diastolic 64–98; PULSE 100; BMI 35.4
--- NOTE | 2025-05-05 00:48 | PTCARENOTE ---
received patient from ED. Patient walked from stretcher to bed without any issue. Patient has cardizem gtt at 15 with a NS bolus running. Patient HR in 70s. 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 Assessment and vital signs as charted. call
mesa in reach.
--- NOTE | 2025-05-05 01:25 | PTCARENOTE ---
patient heart rate dropped in 40s and 50s, Cardizem gtt stopped. TT LABORER CHEESEMAKING to make aware.
[2025-05-05] MEDS: NSS 1000 IV ×3 (01:55→17:27)
[2025-05-05] MEDS: DILAUDID 0.5 MG IV (02:01)
[2025-05-05 04:47] LABS: Hematocrit 35.9 % (37.0-47.0); Hemoglobin 11.8 g/dL (12.0-16.0); Mean Corp Hgb Conc. 32.9 g/dL (33.0-37.0); Mean Corpuscular Volume 92.8 fL (81.0-99.0); Nucleated Red Blood Cells % 0 %; Platelet Count 255 10^3/uL (130-400); Red Cell Dist. Width 13.1 % (11.5-14.5)
[2025-05-05 05:39] LABS: ALT (SGPT) 76 U/L (0-35); AST (SGOT) 89 U/L (14-36); Albumin 3.4 g/dl (3.5-5.0); Alkaline Phosphatase 76 U/L (38-126); Blood Urea Nitrogen 13 mg/dl (7-17); Calcium 8.6 mg/dl (8.4-10.2); Carbon Dioxide 22 mmol/L (22-30); Chloride 110 mmol/L (98-107); Estimated Creatinine Clearance 104 ml/min; Glucose 113 mg/dl (70-99); HDL Cholesterol 55 mg/dl; LDL Cholesterol, Calculated 100 mg/dl; Magnesium 2.1 mg/dl (1.6-2.3); Potassium 4.6 mmol/L (3.5-5.1); Sodium 137 mmol/L (135-145); Total Protein 6.3 g/dl (6.3-8.2); Very Low Density Lipoprotein 11 mg/dl (0-30); eGFR > 60.00
--- NOTE | 2025-05-05 06:43 | W.PN.UPDATE ---
Update Note
Progress Note Update
0124 Cardizem drip on hold HR 40-50 Afib/aflutter. on Eliquis BID. Patient without new complaints.
[2025-05-05] MEDS: ELIQUIS 5 MG PO ×2 (07:39→20:31)
[2025-05-05] MEDS: ROXICODONE 5 MG PO ×3 (07:39→20:38)
--- NOTE | 2025-05-05 07:49 | W.PN.HOSP.TC ---
Today's Communication/Plan
-
Clear liquid diet
Antibiotics
Resume Cardizem IV
Resume oral metoprolol
Cardiology consult
Echocardiogram
Assessment / Plan
Assessment / Plan
Gen-AAOx3, NAD
HEENT-NC, AT, anicteric, clear oral mm
Neck-supple
CV-tacky, irregular, no M, +S1/S2
Lungs-clear B/L
Abd-soft, NT, ND
Ext-no edema
Musculoskeletal-no cyanosis, clubbing
Skin-warm and dry
Neuro-grossly non-focal
Psych-calm, cooperative
Acute sigmoid diverticulitis - uncomplicated. No abscess on CT. Continue antibiotics. Continue clear liquid diet. Continue analgesics.
She is overdue for colonoscopy. Discussed with patient, recommend colonoscopy in 2 months as an outpatient. Last colonoscopy was 7 years ago.
Does have a history of colon polyps.
Rapid atrial fibrillation -rates remain fast. Resume Cardizem drip at 5 mg/h. It was held overnight due to bradycardia at a rate of 15 mg/h.
Resume Toprol-XL 12.5 mg twice daily.
Consult cardiology. Her procedure writer is located in [place]. History of cardiac ablation last year.
Echocardiogram pending.
Essential hypertension -hold amlodipine given occasional low blood pressures. Ensure proper sized cuff.
Hyperlipidemia -hold Zetia for elevated LFTs.
Obesity due to excess calories
Full code
Anticipated Discharge: > 48 hours
Subjective/Interval History
-
Date of Service: May 05, 2025
Patient seen and examined. Complaining of some abdominal pain.
Objective Data
-
Labs:
Laboratory Results
05/05/25
04:34
WBC 9.3
Hgb 11.8 L
Hct 35.9 L
Plt Count 255
Sodium 137
Potassium 4.6
Chloride 110 H
Carbon Dioxide 22
BUN 13
Creatinine 0.6
Glucose 113 H
Calcium 8.6
Total Bilirubin 0.9
AST 89 H
ALT 76 H
Alkaline Phosphatase 76
Vital Signs:
Vital Signs
Temp Pulse Resp BP Pulse Ox
98.5 F 95 17 99/64 94
05/05/25 02:37 05/05/25 05:00 05/05/25 05:00 05/05/25 04:00 05/05/25 05:00
Review of Systems
-
History Source: Patient
All other systems: Reviewed and negative
[2025-05-05] MEDS: TOPROL XL 12.5 MG PO ×2 (08:16→11:45)
[2025-05-05] MEDS: ZOSYN 50 IV ×3 (08:16→20:32)
--- NOTE | 2025-05-05 11:15 | CON.CAR ---
Addendum entered and electronically signed by Rosalba Mcgill MD 05/05/25 16:33:
I saw and examined the patient.
The Emulsion Operator's note was reviewed and I agree with the note.
Comment: General: Well developed, well nourished in NAD.
Heart: Tachycardic
Lungs: Decreased bases
Extremities: No clubbing, cyanosis or edema bilaterally.
She has history of paroxysmal atrial fibrillation status post pulmonary vein isolation in [place] 06/2024. She is being considered for planned watchman in [place] given concern about doing higher level of activities and risk of fall/bleeding. She
has not had falls. She now presents with diverticulitis. She does tell me that she has noted on her watch heart rates of 120 bpm at home without doing activity. She was given extra dose of Toprol for this. She now has noted heart rates of 140
bpm. She is on oral anticoagulation. She underwent echocardiogram which reviewed normal left ventricular size and function. Moderate mitral regurgitation.
She is stable without new symptoms. She continues with abdominal symptoms. Plan at this time:
- Continue treatment of diverticulitis per primary service
- Follow volume status receiving IV fluid
For atrial arrhythmias for which she currently is in atrial tachycardia (asymptomatic)
- We have increased Toprol-XL to 25 twice daily and follow. Follow telemetry. Follow EKG.
- Continue oral anticoagulation
Moderate mitral regurgitation noted. Follow as an outpatient.
She does live primarily in [place] but will also be spending quite a bit of time here since they bought a house in [place] and frequently for long periods of time also visits her daughter who is local. She will also establish in our office and
on discharge we we will have a follow-up appointment.
Original Note:
Consultation
Consultation Request
Date/Time Consultation Performed: 05/05/25
Requesting Provider: Dr. Hartley
Performing Provider: Sherrell Rangel PA-C for Dr. Rosalba Mcgill
Reason for Consultation: afib
Medical History
-
Chief Complaint: abd pain
History of Present Illness:
Patient is a 65-year-old female [place] resident who is up visiting her daughter for 6 weeks with past medical history of hypertension, atrial fibrillation status post ablation 06/2024, and planned for Watchman procedure 08/2025 to avoid chronic
long-term anticoagulation. She reports over the last week she has noted left lower quadrant abdominal pain. She attempted to treat this by decreasing diet to clear liquids for several days with some improvement, however then states she increase
the diet back and ate spaghetti and shrimp and had return of pain with nausea vomiting as well as fever and came to ER for evaluation. She is being treated for acute diverticulitis. She reports her sister and father both have history of this.
Imaging showed no evidence of perforation. She reports in the setting of the abdominal pain she has noted over the last week or so that her heart rates have been pegged in the 120s. She called her automatic tire tester who suggested she take extra Toprol
which worked temporarily, however then with the recurrence of her pain noted her heart rates were in the 140s. Cardiology consulted for evaluation. She states prior to her ablation she was symptomatic with her atrial fibrillation and could tell
when she went into it. She does report some heart pounding, however denies symptoms of dizziness and fatigue that she has had in the past suggestive of atrial arrhythmia. she takes eliquis. Also of note she states approximately a year and a half
ago she presented for colonoscopy and they refused to do it as she was in atrial fibrillation.
PMH:
Paroxysmal atrial fibrillation status post ablation 06/2024, planned for watchman 08/2025
Chronic anticoagulation with Eliquis
Hypertension
Hyperlipidemia
Past Medical History
Past Medical History: Other (in HPI)
Social History
Tobacco: Non-Smoker
Alcohol: Occasional
Personal:
Employment: Retired
Family History
Family History: CAD and Other (diverticulitis)
Allergies / Home Medications
Allergy/AdvReac Type Severity Reaction Status Date / Time
levofloxacin (From Levaquin) Allergy Unknown Verified 05/04/25 16:19
metronidazole (From Flagyl) Allergy Unknown Verified 05/04/25 16:19
�Medication �Instructions �Recorded �Confirmed �Type
acetaminophen 325 mg tablet 650 mg PO Q6HPRN PRN mild pain 05/04/25 05/04/25 History
(Tylenol)
amlodipine 5 mg tablet (Norvasc) 5 mg PO DAILY Blood Pressure 05/04/25 05/04/25 History
apixaban 5 mg tablet (Eliquis) 5 mg PO BID Blood Clot 05/04/25 05/04/25 History
Prevention/Tx
ezetimibe 10 mg tablet (Zetia) 10 mg PO QPM High Cholesterol 05/04/25 05/04/25 History
metoprolol succinate 25 mg 12.5 mg PO DAILYPRN PRN fast heart 05/04/25 05/04/25 History
tablet,extended release 24 hr beat?
(Toprol XL)
Review of Systems
-
History Source: Patient
All other systems: Negative unless noted
Physical Exam
Vital Signs
Temp Pulse Resp BP Pulse Ox
98.5 F 114 21 130/95 95
05/05/25 02:37 05/05/25 07:48 05/05/25 07:48 05/05/25 08:16 05/05/25 07:56
Lab Results
05/05/25 04:34
05/05/25 04:34
Physical Exam
General: No Apparent Distress, Comfortable and Other (obese)
HEENT: Normocephalic, Anicteric and Moist Mucous Membranes
Respiratory: Clear and Non Labored Respirations
Cardiac: S1/S2 and Irregular Rhythm
GI: Soft, Non Tender, Non Distended, Normal Bowel Sounds and Tender (LLQ)
Musculoskeletal: No Clubbing, No Cyanosis and No Edema
Skin: Warm and Dry
Neuro: AO x 3
Impression / Plan
-
Primary Spanish Interpreter: Dr. Malcolm Vaughn [facility] [phone]
Assessment:
Presentation with L abd pain
Acute diverticulitis
Atrial tachycardia with RVR
Paroxysmal atrial fibrillation status post ablation 06/2024, planned for watchman 08/2025
Chronic anticoagulation with Eliquis
Hypertension
Hyperlipidemia
Plan:
- Patient presented with left-sided abdominal pain and diagnosed with acute diverticulitis without perforation by CT of the abdomen and pelvis. Cardiology consulted due to elevated heart rate
- She has paroxysmal A-fib status post ablation in 06/2024. Present rhythm appears most consistent with atrial tachycardia. Will increase outpatient Toprol dose to 25 mg twice daily, and attempt to wean IV Cardizem as able. Presently on clear
liquids
- continue eliquis. she is tentatively scheduled for watchman 08/2025
- adrien attempt to obtain records from primary automatic tire tester office in [place] for review. if no recent echo, will repeat
- suspect atrial arrhythmia brought on by diverticulitis, hopefully resolves with continued treatment. continue abx
- receiving IVF. follow volume status.
- she is planned to return to [place] 05/30/25
Data Reviewed
-
EKG: Tracing Personally Visualized and interpreted
CT Scan: Report Reviewed by me
Labs: Labs Reviewed by me
Old Records: Requested and Reviewed
--- NOTE | 2025-05-05 15:13 | PTCARENOTE ---
Patient is out of bed to chair, tolerating clear liquid diet. Denying nausea when asked. NO bowel movement today. Left sided abdominal pain relieved with Oxycodone 5mg PRN. Patient compliant with plan of care. Cardizem Drip titrated down to 5mg/
hour. Heart rate continues to be afib 80-110.
[2025-05-05] MEDS: CARDIZEM 125 IV (17:26)
--- NOTE | 2025-05-05 17:32 | PTCARENOTE ---
Cardizem drip was discontinued at 1630 this afternoon when heart rate was in the 90s. At 1730 heart rate was elevated at 112-114. Cardizem drip was restarted @5 for heart rate goal of 80-100.
[2025-05-05] MEDS: TOPROL XL 25 MG PO (20:31)
[2025-05-06] VITALS (22 sets, daily range): BP systolic 99–129; BP diastolic 68–96; PULSE 112
--- NOTE | 2025-05-06 01:00 | PTCARENOTE ---
Patient heart rate continues to fluctuate, titrating Cardizem gtt per protocol. Patient getting NS at 100 ml/hr and IV antibiotics. Patient ambulates to bathroom with an assist of one person. assessment and vital signs as charted. call mesa in
reach.
[2025-05-06] MEDS: ZOSYN 50 IV ×4 (01:43→19:47)
[2025-05-06] MEDS: NSS 1000 IV (03:24)
[2025-05-06 04:15] LABS: Hematocrit 33.0 % (37.0-47.0); Hemoglobin 10.9 g/dL (12.0-16.0); Mean Corp Hgb Conc. 33.0 g/dL (33.0-37.0); Mean Corpuscular Volume 93.8 fL (81.0-99.0); Nucleated Red Blood Cells % 0 %; Platelet Count 236 10^3/uL (130-400); Red Cell Dist. Width 13.0 % (11.5-14.5)
[2025-05-06 05:18] LABS: Carbon Dioxide 23 mmol/L (22-30)
[2025-05-06 05:20] LABS: ALT (SGPT) 72 U/L (0-35); AST (SGOT) 44 U/L (14-36); Albumin 3.2 g/dl (3.5-5.0); Alkaline Phosphatase 88 U/L (38-126); Blood Urea Nitrogen 6 mg/dl (7-17); Calcium 8.5 mg/dl (8.4-10.2); Chloride 110 mmol/L (98-107); Estimated Creatinine Clearance 104 ml/min; Glucose 102 mg/dl (70-99); Potassium 4.0 mmol/L (3.5-5.1); Sodium 137 mmol/L (135-145); Total Protein 6.0 g/dl (6.3-8.2); eGFR > 60.00
--- NOTE | 2025-05-06 08:03 | W.PN.HOSP.TC ---
Today's Communication/Plan
-
Advance diet to full liquids
Continue antibiotics
Adjust meds for rate control
Assessment / Plan
Assessment / Plan
Gen-AAOx3, NAD
HEENT-NC, AT, anicteric, clear oral mm
Neck-supple
CV-tacky, irregular, no M, +S1/S2
Lungs-clear B/L
Abd-soft, NT, ND
Ext-no edema
Musculoskeletal-no cyanosis, clubbing
Skin-warm and dry
Neuro-grossly non-focal
Psych-calm, cooperative
Acute sigmoid diverticulitis - uncomplicated. No abscess on CT. Continue antibiotics. Advance to full liquids today.
She is overdue for colonoscopy. Discussed with patient, recommend colonoscopy in 2 months as an outpatient. Last colonoscopy was 7 years ago.
Does have a history of colon polyps.
Rapid atrial fibrillation -rates remain fast. Continue Cardizem drip at 5 mg/h.
Currently on Toprol-XL 25 mg twice daily. Cardiology following and adjusting meds for rate control.
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 History of cardiac ablation last year.
Echocardiogram shows LVEF 55 to 60%, moderate MR, mild TR. No regional wall motion abnormalities.
Essential hypertension -hold amlodipine to allow for up titration of rate controlling meds.
Hyperlipidemia -hold Zetia for elevated LFTs. Transaminases starting to trend down.
Obesity due to excess calories
Full code
Anticipated Discharge: 24 - 48 hours
Subjective/Interval History
-
Date of Service: May 06, 2025
Patient seen and examined. Less abdominal pain today.
Objective Data
-
Labs:
Laboratory Results
05/06/25
04:03
WBC 6.7
Hgb 10.9 L
Hct 33.0 L
Plt Count 236
Sodium 137
Potassium 4.0
Chloride 110 H
Carbon Dioxide 23
BUN 6 L
Creatinine 0.6
Glucose 102 H
Calcium 8.5
Total Bilirubin 0.8
AST 44 H
ALT 72 H
Alkaline Phosphatase 88
Vital Signs:
Vital Signs
Temp Pulse Resp BP Pulse Ox
98.1 F 107 17 122/81 96
05/06/25 03:03 05/06/25 06:00 05/06/25 06:00 05/06/25 05:00 05/06/25 06:00
I&O
05/05/25 05/06/25 05/07/25
06:59 06:59 06:59
Intake Total 1839
Balance 1839
Review of Systems
-
History Source: Patient
All other systems: Reviewed and negative
--- NOTE | 2025-05-06 08:06 | W.PN.CARDCBS ---
Addendum entered and electronically signed by Rosalba Mcgill MD 05/06/25 11:29:
I saw and examined the patient.
The Senior Instrumentation Engineer's note was reviewed and I agree with the note.
Comment: General: Well developed, well nourished in NAD.
Heart: Increased heart rate no murmurs, No S3, S4, no rubs.
Lungs: Decreased at bases
Extremities: No clubbing, cyanosis or edema bilaterally.
Neuro: Grossly nonfocal, awake, alert and oriented x3.
She has history of paroxysmal atrial fibrillation status post pulmonary vein isolation in [place] 06/2024. She is being considered for planned watchman in [place] given concern about doing higher level of activities and risk of fall/bleeding. She
has not had falls. She now presents with diverticulitis. She underwent echocardiogram which reviewed normal left ventricular size and function. Moderate mitral regurgitation.
For atrial arrhythmias for which she currently is in atrial tachycardia and increased rates (asymptomatic)
- We have increased Toprol-XL and follow. Follow telemetry. Follow EKG.
- Discontinue IV diltiazem
- Continue oral anticoagulation (1 dose was missed in the ER)
- If patient becomes symptomatic would need to consider CARISSA cardioversion
- If patient remains in atrial tachycardia and not symptomatic consider CARISSA cardioversion as an outpatient
- In the future would consider redo pulmonary vein isolation
Moderate mitral regurgitation noted. Follow as an outpatient.
GI symptoms are present but improved. Diet is being advanced.
- Continue treatment of diverticulitis per primary service
- Stop IV fluids
- Given rapid heart rates and increased IV fluids will give one-time dose of IV Lasix
She does live primarily in [place] but will also be spending time here since (bought a house in [place]) . She will also establish in our office and on discharge we have scheduled appointment.
Original Note:
Today's Communication / Plan
-
increase po toprol
wean off IV cardizem
continue eliquis
consider for IV lasix, follow volume status
Impression / Plan
-
Primary Furnace Stock Inspector: Dr. Malcolm Vaughn of [facility] [phone]
Assessment:
Presentation with L abd pain
Acute diverticulitis
Atrial tachycardia with RVR
Paroxysmal atrial fibrillation status post ablation 06/2024, planned for watchman 08/2025
Chronic anticoagulation with Eliquis
Hypertension
Hyperlipidemia
ECHO 05/05/25: EF 55 to 60%, mildly dilated RA, moderate MR, mild TR, PAP 42 mmHg
Plan:
- Patient presented with left-sided abdominal pain and diagnosed with acute diverticulitis without perforation by CT of the abdomen and pelvis. Cardiology consulted due to elevated heart rate
- She has paroxysmal A-fib status post ablation in 06/2024. Present rhythm appears most consistent with atrial tachycardia. Will increase po toprol to 50mg BID and attempt to wean off IV cardizem gtt, currently @5.
- continue eliquis. she is tentatively scheduled for watchman 08/2025 in [place]
- echo with results as above
- adrien attempt to obtain records from primary algebra teacher office in [place] for review.
- suspect atrial arrhythmia brought on by diverticulitis, hopefully resolves with continued treatment. continue abx
- receiving IVF. follow volume status. consider for dose of IV lasix today.
- she is planned to return to [place] 05/30/25. OP follow up arranged here for 05/26 as she wishes to establish care here as well.
Progress Note - Furnace Stock Inspector
Subjective
Date of Service: May 06, 2025
Reports abdomen is sore. Tolerating clear liquids. No palpitations
Objective
Labs:
05/06/25 04:03
05/06/25 04:03
Labs
Hgb 10.9 g/dL (12.0-16.0) L 05/06/25 04:03
Hct 33.0 % (37.0-47.0) L 05/06/25 04:03
Plt Count 236 10^3/uL (130-400) 05/06/25 04:03
Sodium 137 mmol/L (135-145) 05/06/25 04:03
Potassium 4.0 mmol/L (3.5-5.1) 05/06/25 04:03
BUN 6 mg/dl (7-17) L 05/06/25 04:03
Creatinine 0.6 mg/dL (0.6-1.0) 05/06/25 04:03
Glucose 102 mg/dl (70-99) H 05/06/25 04:03
Vital Signs and I&O:
Vital Signs
Temp Pulse Resp BP Pulse Ox
98.1 F 107 17 122/81 96
05/06/25 03:03 05/06/25 06:00 05/06/25 06:00 05/06/25 05:00 05/06/25 06:00
Vital Signs
Temp Pulse Resp BP Pulse Ox
98.1 F 107 17 122/81 96
05/06/25 03:03 05/06/25 06:00 05/06/25 06:00 05/06/25 05:00 05/06/25 06:00
Intake & Output
05/04/25 05/05/25 05/06/25 05/07/25
07:59 07:59 07:59 07:59
Intake Total 1839
Balance 1839
Physical Exam
Physical Exam
GEN: No distress, awake, alert, oriented x3
HEENT: supple, anicteric, mmm, eomi
LUNGS: CTA B/L, no wheezes/rales
CV: Irreg, S1/S2, no murmur
ABD: soft, BS+, NT/ND
EXT: No cyanosis, clubbing. Trace edema of B/L LE
NEURO: Gross non-focal
SKIN: Warm, pink, dry. No rash
[2025-05-06] MEDS: TOPROL XL PO (09:33)
[2025-05-06] MEDS: TOPROL XL 50 MG PO ×2 (09:54→18:43)
[2025-05-06] MEDS: LASIX 20 MG IV (09:54)
[2025-05-06] MEDS: ELIQUIS 5 MG PO ×2 (09:54→19:47)
[2025-05-06] MEDS: ROXICODONE 5 MG PO ×2 (09:55→19:48)
[2025-05-06] MEDS: FLUSH (NSS) 1 FLUSH IV ×2 (09:56→15:35)
--- NOTE | 2025-05-06 10:23 | CM ---
Patient seen at bedside in IMU. Patient stated that she recently purchased a home in [place] and she stated that the home is a private home, their condo is a one story home with no step. Patient has no PCP and is open to considering residency
clinic. Patient normally lives in [place] but plans to come back and forth as daughter lives locally and is having a baby. Patient uses a CPAP and uses [facility] on [facility]. Patient plan is home with VN if needed, pending PT/OT assessment.
CM will continue to follow for discharge planning needs.
Plan; home with no needs vs home with VN pending PT/OT assessment/medical treatment plan.
--- NOTE | 2025-05-06 15:42 | PTCARENOTE ---
IV fluids and cardizem drip are discontinued as per MD. Afib on monitor with HR 85-103. Patient tolerated full liquid diet for breakfast and lunch. Advanced to low residue for dinner. VS stable,afebrile. Patient ambulating to bathroom. Voiding
without difficulty. Call mesa in reach. Will monitor.
[2025-05-07] VITALS (15 sets, daily range): BP systolic 103–137; BP diastolic 81–98; PULSE 85–111
[2025-05-07] MEDS: ZOSYN 50 IV ×4 (01:50→19:31)
[2025-05-07 05:12] LABS: Hematocrit 35.7 % (37.0-47.0); Hemoglobin 11.8 g/dL (12.0-16.0); Mean Corp Hgb Conc. 33.1 g/dL (33.0-37.0); Mean Corpuscular Volume 92.7 fL (81.0-99.0); Nucleated Red Blood Cells % 0 %; Platelet Count 259 10^3/uL (130-400); Red Cell Dist. Width 12.8 % (11.5-14.5)
[2025-05-07 05:42] LABS: ALT (SGPT) 65 U/L (0-35); AST (SGOT) 36 U/L (14-36); Albumin 3.5 g/dl (3.5-5.0); Alkaline Phosphatase 105 U/L (38-126); Blood Urea Nitrogen 10 mg/dl (7-17); Calcium 8.8 mg/dl (8.4-10.2); Carbon Dioxide 25 mmol/L (22-30); Chloride 108 mmol/L (98-107); Estimated Creatinine Clearance 78 ml/min; Glucose 101 mg/dl (70-99); Potassium 4.1 mmol/L (3.5-5.1); Sodium 138 mmol/L (135-145); Total Protein 6.3 g/dl (6.3-8.2); eGFR > 60.00
--- NOTE | 2025-05-07 06:06 | PTCARENOTE ---
patient ambulating to bathroom. PRN pain medication given once this shift for left lower abdominal pain. HR can be 110-115 at times. assessment and vitals as charted. call mesa in reach.
--- NOTE | 2025-05-07 07:57 | W.PN.HOSP.TC ---
Today's Communication/Plan
-
Encourage ambulation
Minimize opiates
Assessment / Plan
Assessment / Plan
Gen-AAOx3, NAD
HEENT-NC, AT, anicteric, clear oral mm
Neck-supple
CV-tacky, irregular, no M, +S1/S2
Lungs-clear B/L
Abd-soft, nondistended, less tender
Ext-no edema
Musculoskeletal-no cyanosis, clubbing
Skin-warm and dry
Neuro-grossly non-focal
Psych-calm, cooperative
Acute sigmoid diverticulitis - uncomplicated. No abscess on CT. Continue antibiotics. Tolerating solids. No bowel movement yet in the hospital. Encouraged ambulation, minimize opiates.
She is overdue for colonoscopy. Discussed with patient, recommend colonoscopy in 2 months as an outpatient. Last colonoscopy was 7 years ago.
Does have a history of colon polyps.
Rapid atrial fibrillation -rates overall improving but still over 100. Off Cardizem IV. History of ablation last year in [place]. Being considered for Watchman device in [place].
Currently on Toprol-XL 50 mg twice daily. Cardiology following and adjusting meds for rate control.
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 History of cardiac ablation last year.
Echocardiogram shows LVEF 55 to 60%, moderate MR, mild TR. No regional wall motion abnormalities.
Essential hypertension -hold amlodipine to allow for up titration of rate controlling meds.
Hyperlipidemia -hold Zetia for elevated LFTs. Transaminases starting to trend down.
Obesity due to excess calories
Full code
Anticipated Discharge: Within 24 hours
Subjective/Interval History
-
Date of Service: May 07, 2025
Patient seen and examined. Abdominal pain improved. No complaints.
Objective Data
-
Labs:
Laboratory Results
05/07/25
04:59
WBC 5.4
Hgb 11.8 L
Hct 35.7 L
Plt Count 259
Sodium 138
Potassium 4.1
Chloride 108 H
Carbon Dioxide 25
BUN 10
Creatinine 0.8
Glucose 101 H
Calcium 8.8
Total Bilirubin 0.5
AST 36
ALT 65 H
Alkaline Phosphatase 105
Vital Signs:
Vital Signs
Temp Pulse Resp BP Pulse Ox
98.4 F 110 19 122/88 95
05/07/25 03:00 05/07/25 06:00 05/07/25 06:00 05/07/25 06:00 05/07/25 06:00
I&O
05/06/25 05/07/25 05/08/25
06:59 06:59 06:59
Intake Total 1840 / 1840 1650 / 1650
Balance 1840 / 1840 1650 / 1650
Review of Systems
-
History Source: Patient
All other systems: Reviewed and negative
[2025-05-07] MEDS: ELIQUIS 5 MG PO ×2 (08:05→19:29)
[2025-05-07] MEDS: TOPROL XL 50 MG PO ×2 (08:05→19:27)
--- NOTE | 2025-05-07 08:45 | PTCARENOTE ---
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 Patient resting comfortably in bed. AAO, VSS. No events noted overnight. No complaints of pain at this time. No fluids through IV. Encouraging more ambulation. Continuing ABX. No testing scheduled at this
time. Possible downgrade. Call mesa in reach.
--- NOTE | 2025-05-07 12:26 | W.PN.CARDCBS ---
Today's Communication / Plan
-
Continue treatment of diverticular disease
Continue heart rate control of atrial tachycardia. Continue anticoagulation.
If patient is symptomatic and GI status is stable would perform CARISSA/cardioversion on Friday. If patient remains asymptomatic this may be performed as an outpatient which I discussed with the patient.
Impression / Plan
-
Primary Home Assessment Nurse: Dr. Malcolm Vaughn of [facility] [phone]
Assessment:
Presentation with L abd pain
Acute diverticulitis
Atrial tachycardia with RVR
Paroxysmal atrial fibrillation status post ablation 06/2024, planned for watchman 08/2025
Chronic anticoagulation with Eliquis
Hypertension
Hyperlipidemia
ECHO 05/05/25: EF 55 to 60%, mildly dilated RA, moderate MR, mild TR, PAP 42 mmHg
Plan:
Patient presented with left-sided abdominal pain and diagnosed with acute diverticulitis without perforation by CT of the abdomen and pelvis. Cardiology consulted due to elevated heart rate. Telemetry independently reviewed by me. Vital signs and
labs independently reviewed by me today.
- She has paroxysmal A-fib status post ablation in 06/2024. Present rhythm appears most consistent with atrial tachycardia. She is asymptomatic even with ambulation although her heart rates are around 100 bpm. We have increased beta-jaqueline.
Continue toprol to 50mg BID.
-She will continue eliquis. She did miss 1 dose in the ER night of admission. She is contemplating future watchman 08/2025 in [place] but this is going to be on hold at this time.
-Echo stable with results as above. Continue to follow moderate mitral regurgitation.
-If patient is symptomatic and GI status is stable would perform CARISSA/cardioversion on Friday. If patient remains asymptomatic this may be performed as an outpatient which I discussed with the patient.
- Given continued recurrences of arrhythmia she will likely need repeat ablation or other treatments in the future.
-Continue treatment of diverticular disease.
-Volume status appears stable.
-On Zetia for lipids. I have resumed. Zetia does not effect LFTs.
-She is planned to return to [place] 05/30/25. OP follow up arranged here for 05/26 as she wishes to establish care here as well.
I had a long discussion today with patient regarding treatment plan. She understands the plan. All questions answered.
Progress Note - Home Assessment Nurse
Subjective
Date of Service: May 07, 2025
She is feeling better and they are advancing her diet. Abdomen is stable. She walked the halls without problem.
Objective
Labs:
05/07/25 04:59
05/07/25 04:59
Labs
Hgb 11.8 g/dL (12.0-16.0) L 05/07/25 04:59
Hct 35.7 % (37.0-47.0) L 05/07/25 04:59
Plt Count 259 10^3/uL (130-400) 05/07/25 04:59
Sodium 138 mmol/L (135-145) 05/07/25 04:59
Potassium 4.1 mmol/L (3.5-5.1) 05/07/25 04:59
BUN 10 mg/dl (7-17) 05/07/25 04:59
Creatinine 0.8 mg/dL (0.6-1.0) 05/07/25 04:59
Glucose 101 mg/dl (70-99) H 05/07/25 04:59
Vital Signs and I&O:
Vital Signs
Temp Pulse Resp BP Pulse Ox
97.8 F 111 17 114/81 96
05/07/25 08:00 05/07/25 12:00 05/07/25 09:30 05/07/25 09:00 05/07/25 12:00
Vital Signs
Temp Pulse Resp BP Pulse Ox
97.8 F 111 17 114/81 96
05/07/25 08:00 05/07/25 12:00 05/07/25 09:30 05/07/25 09:00 05/07/25 12:00
Intake & Output
05/05/25 05/06/25 05/07/25 05/08/25
06:59 06:59 06:59 06:59
Intake Total 1840 / 1840 1650 / 1650 400 / 400
Balance 1840 / 1840 1650 / 1650 400 / 400
Physical Exam
Physical Exam
General: Well developed, well nourished in NAD.
Heart: Tachycardia but regular
Lungs: Decreased at bases
Extremities: No clubbing, cyanosis or edema bilaterally.
Neuro: Grossly nonfocal, awake, alert and oriented x3.
[2025-05-07] MEDS: TYLENOL 650 MG PO (15:43)
[2025-05-08] VITALS (9 sets, daily range): BP systolic 110–134; BP diastolic 83–101
--- NOTE | 2025-05-08 00:25 | PTCARENOTE ---
Caring for pt overnight. aaox3, pleasant. Tender abdomen but not complaining of pain. NSR/ST. No CP. Remains on RA, no SOB. Pt refused cpap tonight. OOB by her self, steady on feet. IVabx. No other issues. Will monitor.
[2025-05-08] MEDS: ZOSYN 50 IV ×4 (02:17→20:36)
--- NOTE | 2025-05-08 08:30 | W.PN.HOSP.TC ---
Today's Communication/Plan
-
Await cardiology input
Assessment / Plan
Assessment / Plan
Gen-AAOx3, NAD
HEENT-NC, AT, anicteric, clear oral mm
Neck-supple
CV-tacky, irregular, no M, +S1/S2
Lungs-clear B/L
Abd-soft, nondistended, less tender
Ext-no edema
Musculoskeletal-no cyanosis, clubbing
Skin-warm and dry
Neuro-grossly non-focal
Psych-calm, cooperative
Acute sigmoid diverticulitis - uncomplicated. No abscess on CT. Continue antibiotics. Tolerating solids. She states she had a small bowel movement yesterday. Encouraged ambulation, minimize opiates.
She is overdue for colonoscopy. Discussed with patient, recommend colonoscopy in 2 months as an outpatient. Last colonoscopy was 7 years ago. 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
Does have a history of colon polyps.
Rapid atrial fibrillation -rates overall improving but still over 100. Off Cardizem IV. History of ablation last year in [place]. Being considered for Watchman device in [place].
Currently on Toprol-XL 50 mg twice daily. Cardiology following and adjusting meds for rate control.
Her call or contact centre operator is located in [place]. History of cardiac ablation last year.
Echocardiogram shows LVEF 55 to 60%, moderate MR, mild TR. No regional wall motion abnormalities.
Cardiology contemplating possible cardioversion on Friday. If no plans for cardioversion then can discharge with outpatient follow-up.
Essential hypertension -hold amlodipine to allow for up titration of rate controlling meds.
Hyperlipidemia -hold Zetia for elevated LFTs. Transaminases starting to trend down.
Obesity due to excess calories
Full code
Anticipated Discharge: 24 - 48 hours
Subjective/Interval History
-
Date of Service: May 08, 2025
Patient seen and examined. Feeling much better. Minimal abdominal pain. No complaints.
Objective Data
-
Vital Signs:
Vital Signs
Temp Pulse Resp BP Pulse Ox
97.8 F 103 17 128/98 98
05/07/25 22:50 05/08/25 06:00 05/07/25 09:30 05/08/25 03:10 05/08/25 07:59
I&O
05/07/25 05/08/25 05/09/25
06:59 06:59 06:59
Intake Total 1650 / 1650 520 / 520
Balance 1650 / 1650 520 / 520
Review of Systems
-
History Source: Patient
All other systems: Reviewed and negative
[2025-05-08] MEDS: MIRALAX 17 GRAMS PO (09:07)
[2025-05-08] MEDS: ELIQUIS 5 MG PO ×2 (09:10→20:35)
[2025-05-08] MEDS: TYLENOL 650 MG PO ×2 (09:10→20:36)
[2025-05-08] MEDS: TOPROL XL 50 MG PO ×2 (09:10→20:35)
[2025-05-08] MEDS: FLUSH (NSS) 2 FLUSH IV (09:12)
--- NOTE | 2025-05-08 11:03 | PTCARENOTE ---
Patient tolerating a regular diet. Patient independent in care. Ambulating in room and to bathroom. Had a normal BM in bathroom this morning. HR in the 90's-110 NSR/atrial tachycardia. VS stable,afebrile. Pulse ox 97%-100% room air. Patient
reports minimal abdominal discomfort. Has not needed any pain medication today. Tylenol given this AM for mild headache.
--- NOTE | 2025-05-08 13:48 | CM ---
Patient seen at bedside in IMU. Patient stated she is possibly for CARISSA on friday, awaiting cardiology and hospitalist to assess when seen by CM earlier today. CM will continue to follow for discharge planning needs.
Plan;home with VN pending Medical treatment plan
[2025-05-08] MEDS: FLUSH (NSS) 1 FLUSH IV (15:11)
--- NOTE | 2025-05-08 16:11 | PTCARENOTE ---
Report given to Yaa DOVER. Patient transferred to IVU in wheelchair. All belongings with the patient.
--- NOTE | 2025-05-08 16:21 | PTCARENOTE ---
Addendum entered by Yaa Simsm RN 05/08/25 16:35:
talked with Dr. Mcgill, patient will be NPO after MN for CARISSA/CV in am.
Original Note:
patient transferred from IMU to IVU. telemetry placed, atrial tach/afib, vss HR 111. sister in law at bedside. lung metzger clear on RA, bilat. LE, no edema, pedal pulses palpable. patient does not c/o of any pain or discomfort. call mesa within
reach.
--- NOTE | 2025-05-08 16:47 | W.PN.CARDCBS ---
Today's Communication / Plan
-
N.p.o. for CARISSA cardioversion in the morning
Impression / Plan
-
Primary Undercoat Sprayer: Dr. Malcolm Vaughn of [facility] [phone]
Assessment:
Atrial tachycardia with RVR
Presentation with L abd pain
Acute diverticulitis
Paroxysmal atrial fibrillation status post pulse feels ablation 06/2024, planned for watchman 08/2025
Chronic anticoagulation with Eliquis
Hypertension
Hyperlipidemia
ECHO 05/05/25: EF 55 to 60%, mildly dilated RA, moderate MR, mild TR, PAP 42 mmHg
Plan:
Her sister is at the bedside.
Patient presented with left-sided abdominal pain and diagnosed with acute diverticulitis without perforation by CT of the abdomen and pelvis. Cardiology consulted due to elevated heart rate. Telemetry independently reviewed by me. Vital signs and
labs independently reviewed by me today. She remains in likely left atrial tachycardia with increased rates despite AV dre blocking agents. Heart rates at rest are 110 bpm. She is doing very well from a diverticulitis point of view. She is now
advanced to solids and has had a bowel movement and is going to be ready for discharge.
She continues on oral anticoagulation.
- She has paroxysmal A-fib status post pulsed field ablation in 06/2024 (I reviewed record). Present rhythm appears most consistent with atrial tachycardia. Heart rate remains at 100 bpm at rest. Continue toprol to 50mg BID.
We discussed at great length arrhythmia and proceeding with jew of sinus rhythm with CARISSA cardioversion. She is agreeable to proceed. Procedure discussed at length.
-Plan for CARISSA cardioversion in the morning.
-She will continue eliquis. She did miss 1 dose in the ER night of admission. She is contemplating future watchman 08/2025 in [place] but this is going to be on hold at this time.
-Echo stable with results as above. Continue to follow moderate mitral regurgitation.
- Given continued recurrences of arrhythmia she will likely need repeat ablation or other treatments in the future.
-Continue treatment of diverticular disease.
-Volume status appears stable.
-On Zetia for lipids.
-She is planned to return to [place] 05/30/25. OP follow up arranged here for 05/26 as she wishes to establish care here as well.
She is made NPO.
Progress Note - Undercoat Sprayer
Subjective
Date of Service: May 08, 2025
She denies chest pain.
Objective
Labs:
05/07/25 04:59
05/07/25 04:59
Labs
Hgb 11.8 g/dL (12.0-16.0) L 05/07/25 04:59
Hct 35.7 % (37.0-47.0) L 05/07/25 04:59
Plt Count 259 10^3/uL (130-400) 05/07/25 04:59
Sodium 138 mmol/L (135-145) 05/07/25 04:59
Potassium 4.1 mmol/L (3.5-5.1) 05/07/25 04:59
BUN 10 mg/dl (7-17) 05/07/25 04:59
Creatinine 0.8 mg/dL (0.6-1.0) 05/07/25 04:59
Glucose 101 mg/dl (70-99) H 05/07/25 04:59
Vital Signs and I&O:
Vital Signs
Temp Pulse Resp BP Pulse Ox
98.2 F 111 18 134/93 99
05/08/25 16:05/08/25 16:05/08/25 16:05/08/25 16:05/08/25 16:18
Vital Signs
Temp Pulse Resp BP Pulse Ox
98.2 F 111 18 134/93 99
05/08/25 16:05/08/25 16:05/08/25 16:05/08/25 16:05/08/25 16:18
Intake & Output
05/06/25 05/07/25 05/08/25 05/09/25
06:59 06:59 06:59 06:59
Intake Total 1839 520 / 520 770 / 770
Balance 18390 / 1650 520 / 520 770 / 770
Physical Exam
Physical Exam
General: Well developed, well nourished in NAD.
Heart: Tachycardia but regular
Lungs: Coarse anterior breath sounds
Extremities: No clubbing, cyanosis or edema bilaterally.
Neuro: Grossly nonfocal, awake, alert and oriented x3.
--- NOTE | 2025-05-08 16:48 | PTCARENOTE ---
notified Lore Hartman. tube room supervisor to put patient on schedule for CARISSA/CV.
[2025-05-08] MEDS: ZETIA 10 MG PO (17:06)
--- NOTE | 2025-05-08 22:39 | PTCARENOTE ---
Patient received at change of shift with family visiting. Reported a mild headache, prn Acetaminophen administered, see MAR. Denies chest pain. Atrial tach on the monitor. SaO2 on room air 97-99%. Plan of care discussed including NPO status at
midnight for CARISSA/CV. Call mesa within reach. Care ongoing.
[2025-05-09] VITALS (13 sets, daily range): BP systolic 101–132; BP diastolic 63–96
[2025-05-09] MEDS: ZOSYN 50 IV ×4 (03:04→20:00)
--- NOTE | 2025-05-09 05:48 | PTCARENOTE ---
Patient telemetry alarmed at 0421 and a 4.5 second pause was noted. Upon entering the patient's room she was asleep and woken up by the alarm and staff entering the room. Patient denies any discomfort. BP 132/96. HR back up to the 100s-110s. Care
ongoing.
--- NOTE | 2025-05-09 08:47 | W.PN.CARDCBS ---
Addendum entered and electronically signed by Sina Funes DO 05/09/25 09:40:
I saw and examined the patient.
The Gravity Prospecting Observer Helper's note was reviewed and I agree with the note.
Comment:
Plan:
CARISSA/cv today
Cont Toprol and Eliquis
If remains stable, possible d/c later today post procedure
outpt follow up arranged.
Original Note:
Today's Communication / Plan
-
Continue Toprol 50mg BID, Eliquis 5mg BID
ACRISSA/CV today
For possible d/c if stable post-procedure.
Follow up arranged.
Impression / Plan
-
Primary Chicken Dresser: Dr. Malcolm Vaughn of [facility] [phone]
Assessment:
Atrial tachycardia with RVR
Presentation with L abd pain
Acute diverticulitis
Paroxysmal atrial fibrillation
s/p PFA 06/2024, planned for watchman 08/2025
Chronic anticoagulation with Eliquis
Hypertension
Hyperlipidemia
ECHO 05/05/2025: EF 55 to 60%, mildly dilated RA, moderate MR, mild TR, PAP 42 mmHg
Plan:
-Presented with L sided abdominal pain. Admitted with acute diverticulitis and rapid atrial tachycardia.
-Heart rates remain elevated despite attempts at rate control.
-Continue Toprol 50mg BID. For CARISSA/CV today.
-Continue Eliquis 5mg BID. Did miss a dose while in ER. Tentatively scheduled for watchman in [place] 08/2025. May need repeat ablation in the future additionally.
-Echo 05/05 with preserved EF and moderate MR as noted above.
-Continue abx per primary service for diverticulitis.
-Volume status appears stable.
-Continue zetia 10mg daily.
-She is planned to return to [place] 05/30/25. OP follow up arranged here for 05/26 as she wishes to establish care here as well.
-If stable post CV, could consider discharge later today.
Progress Note - Chicken Dresser
Subjective
Date of Service: May 09, 2025
Overall feels well.
Objective
Labs:
05/07/25 04:59
05/07/25 04:59
Labs
Hgb 11.8 g/dL (12.0-16.0) L 05/07/25 04:59
Hct 35.7 % (37.0-47.0) L 05/07/25 04:59
Plt Count 259 10^3/uL (130-400) 05/07/25 04:59
Sodium 138 mmol/L (135-145) 05/07/25 04:59
Potassium 4.1 mmol/L (3.5-5.1) 05/07/25 04:59
BUN 10 mg/dl (7-17) 05/07/25 04:59
Creatinine 0.8 mg/dL (0.6-1.0) 05/07/25 04:59
Glucose 101 mg/dl (70-99) H 05/07/25 04:59
Vital Signs and I&O:
Vital Signs
Temp Pulse Resp BP Pulse Ox
98.1 F 111 20 130/93 97
05/09/25 06:50 05/09/25 06:49 05/09/25 06:50 05/09/25 06:49 05/09/25 06:50
Vital Signs
Temp Pulse Resp BP Pulse Ox
98.1 F 111 20 130/93 97
05/09/25 06:50 05/09/25 06:49 05/09/25 06:50 05/09/25 06:49 05/09/25 06:50
Intake & Output
05/07/25 05/08/25 05/09/25 05/10/25
06:59 06:59 06:59 06:59
Intake Total 1650 / 1650 520 / 520 870 / 870
Balance 1650 / 1649 520 / 520
Physical Exam
Physical Exam
GEN: No distress, awake, alert, oriented x3
HEENT: supple, anicteric, mmm
LUNGS: CTA b/l, no wheezes/rales
CV: irregularly irregular, S1/S2, 1/6 syst murmur
EXT: No clubbing, cyanosis, or edema
NEURO: Gross non-focal
SKIN: Warm, dry, no rash
[2025-05-09] MEDS: TOPROL XL 50 MG PO ×2 (09:14→20:00)
[2025-05-09] MEDS: MIRALAX PO (09:14)
[2025-05-09] MEDS: ELIQUIS 5 MG PO ×2 (09:14→20:00)
--- NOTE | 2025-05-09 09:31 | PTCARENOTE ---
received patient this am, monitor shows atrial tach with a HR 112. VSS. patient remains NPO for CARISSA/CV this am. patient had a 4.3 second pause last night, Dorcas SHELTON aware, patient does have sleep apnea.
--- NOTE | 2025-05-09 11:39 | W.PN.UPDATE ---
Update Note
Progress Note Update
CARISSA/cardioversion
Successful conversion of atrial flutter to sinus rhythm
Information communicated to Dr. Funes. Additional management as directed by DCA and hospitalist
--- NOTE | 2025-05-09 12:20 | PTCARENOTE ---
patient returned from cath lab radiological technologist, CARISSA/CV successful with 1 200J shock. patient is sleepy but aroused. monitor shows SB, VSS.
--- NOTE | 2025-05-09 14:58 | CM ---
Chart reviewed. Patient is independent of ADLS, lives alone in [place] but recently purchased a house in [place], patient's staying with her daughter for 6 wks. Patient has a 1 STH, 0 JHONY, 0 DME. Patient is not interested in VN. Plan is for
the patient to return to her daughters house when medically stable CM to follow
--- NOTE | 2025-05-09 16:07 | W.PN.HOSP.TC ---
Today's Communication/Plan
-
Assessment / Plan
Assessment / Plan
Gen-AAOx3, NAD
HEENT-NC, AT, anicteric, clear oral mm
Neck-supple
CV-regular rhythm, heart rate controlled around 60, no M, +S1/S2
Lungs-clear B/L
Abd-soft, nondistended, less tender
Ext-no edema
Musculoskeletal-no cyanosis, clubbing
Skin-warm and dry
Neuro-grossly non-focal
Psych-calm, cooperative
Acute sigmoid diverticulitis - uncomplicated. No abscess on CT. Continue antibiotics. Tolerating solids. She states she had a small bowel movement. Encouraged ambulation, minimize opiates.
She is overdue for colonoscopy. Discussed with patient, recommend colonoscopy in 2 months as an outpatient. Last colonoscopy was 7 years ago. 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
Does have a history of colon polyps.
Rapid atrial fibrillation
- History of ablation last year in [place]. Being considered for Watchman device in [place].
- Status post CARISSA with cardioversion this morning 05/09 with successful roman catholic of normal sinus rhythm heart rate controlled now around 60
- Currently on Toprol-XL 50 mg twice daily with holding parameters. Cardiology following and adjusting meds for rate control.
- Continue telemetry monitoring
- Further recommendations per cardiology
Essential hypertension -hold amlodipine to allow for up titration of rate controlling meds.
Hyperlipidemia -hold Zetia for elevated LFTs. Transaminases starting to trend down.
Obesity due to excess calories
Full code
Total time spent with patient care 54 minutes.
Anticipated Discharge: 24 - 48 hours
Subjective/Interval History
-
Date of Service: May 09, 2025
Patient was seen and examined at bedside. She underwent successful CARISSA with cardioversion. Feeling drowsy but otherwise well.
Objective Data
-
Vital Signs:
Vital Signs
Temp Pulse Resp BP Pulse Ox
98.1 F 58 20 122/66 99
05/09/25 14:58 05/09/25 14:00 05/09/25 14:58 05/09/25 13:30 05/09/25 14:58
I&O
05/08/25 05/09/25 05/10/25
06:59 06:59 06:59
Intake Total 520 / 520 870 / 870 100 / 100
Balance 520 / 520 870 / 870 100 / 100
Review of Systems
-
History Source: Patient
All other systems: Reviewed and negative
Physical Exam
-
General: No Apparent Distress
[2025-05-09] MEDS: ZETIA 10 MG PO (17:41)
--- NOTE | 2025-05-09 21:49 | PTCARENOTE ---
Patient received at change of shift resting in the bed. Reports feeling tired following her CARISSA/CV today but otherwise offers no other complaints. Sinus rhythm with first degree AV block on telemetry. Oxygen saturation on room air 97%. Plan of care
discussed. Call mesa within reach. Care ongoing
[2025-05-10] MEDS: ZOSYN 50 IV ×2 (02:56→09:15)
[2025-05-10 03:02] VITALS: BP 131/79
[2025-05-10 07:39] VITALS: BP 113/69
[2025-05-10] MEDS: FLUSH (NSS) 1 FLUSH IV (09:15)
[2025-05-10] MEDS: TOPROL XL 50 MG PO (09:16)
[2025-05-10] MEDS: MIRALAX 17 GRAMS PO (09:17)
[2025-05-10] MEDS: ELIQUIS 5 MG PO (09:17)
--- NOTE | 2025-05-10 10:44 | W.PN.CARDCBS ---
Addendum entered and electronically signed by Sina Funes DO 05/10/25 14:26:
I saw and examined the patient.
The Propulsion Systems Engineer's note was reviewed and I agree with the note.
Comment:
Plan:
Stable for d/c from cardiac standpoint
Cont Toprol and Eliquis
monitor HR
Reviewed CARISSA
Outpt cardiac follow up arranged.
Original Note:
Today's Communication / Plan
-
Continue Toprol 50 mg twice daily, Eliquis 5 mg twice daily
Okay for discharge to home from cardiac standpoint
Outpatient cardiac follow-up arranged
Impression / Plan
-
Primary Hospital Medicine Director: Dr. Malcolm Vaughn of [facility] [phone]
Assessment:
Atrial tachycardia with RVR
Presentation with L abd pain
Acute diverticulitis
Paroxysmal atrial fibrillation
s/p PFA 06/2024, planned for watchman 08/2025
Chronic anticoagulation with Eliquis
Hypertension
Hyperlipidemia
ECHO 05/05/2025: EF 55 to 60%, mildly dilated RA, moderate MR, mild TR, PAP 42 mmHg
Plan:
- Presented with L sided abdominal pain. Admitted with acute diverticulitis and rapid atrial tachycardia.
- Underwent successful CARISSA/cardioversion 05/09/2025. On review of telemetry overnight, remains in sinus bradycardia.
- continue toprol 50mg BID. encouraged patient to follow HRs at home. if notes dizziness/lightheadedness, will need to decrease dosing
- continue eliquis 5mg BID. Tentatively scheduled for watchman in [place] 08/2025. May need repeat ablation in the future additionally.
- Echo 05/05 with preserved EF and moderate MR as noted above.
- Continue abx per primary service for diverticulitis.
- Continue zetia 10mg daily.
- She is planned to return to [place] 05/30/25. OP follow up arranged here for 05/26 as she wishes to establish care here as well.
- ok for DC today from cardiac standpoint
- d/w nursing
Progress Note - Hospital Medicine Director
Subjective
Date of Service: May 10, 2025
No complaints. Tolerating diet. No dizziness or lightheadedness
Objective
Labs:
05/07/25 04:59
05/07/25 04:59
Labs
Hgb 11.8 g/dL (12.0-16.0) L 05/07/25 04:59
Hct 35.7 % (37.0-47.0) L 05/07/25 04:59
Plt Count 259 10^3/uL (130-400) 05/07/25 04:59
Sodium 138 mmol/L (135-145) 05/07/25 04:59
Potassium 4.1 mmol/L (3.5-5.1) 05/07/25 04:59
BUN 10 mg/dl (7-17) 05/07/25 04:59
Creatinine 0.8 mg/dL (0.6-1.0) 05/07/25 04:59
Glucose 101 mg/dl (70-99) H 05/07/25 04:59
Vital Signs and I&O:
Vital Signs
Temp Pulse Resp BP Pulse Ox
98.2 F 51 18 113/69 98
05/10/25 07:37 05/10/25 10:00 05/10/25 07:37 05/10/25 09:16 05/10/25 08:30
Vital Signs
Temp Pulse Resp BP Pulse Ox
98.2 F 51 18 113/69 98
05/10/25 07:37 05/10/25 10:00 05/10/25 07:37 05/10/25 09:16 05/10/25 08:30
Intake & Output
05/08/25 05/09/25 05/10/25 05/11/25
07:59 07:59 07:59 07:59
Intake Total 520 / 520 870 / 870 580 / 580
Balance 520 / 520 870 / 870 580 / 580
Physical Exam
Physical Exam
GEN: No distress, awake, alert, oriented x3
HEENT: supple, anicteric, mmm, EOMI
LUNGS: CTA bilaterally, no wheezes/rales
CV: Reg and abena, S1/S2, no murmur
ABD: soft, BS+, NT/ND
EXT: No cyanosis, clubbing, edema
NEURO: Gross non-focal
SKIN: Warm, pink, dry. No rash
[2025-05-10 10:59] VITALS: BP 110/64
--- NOTE | 2025-05-10 11:11 | W.DCSUMMARY ---
Discharge Summary
Discharge Data
Date of Admission: 05/04/25
Date of Discharge: 05/10/25
Total time spent discharging patient (in min): 53
-
Pending Results: No
Hospital Course
Ms. Koch is a 65-year-old female with a medical history of A-fib/flutter (ablation June 2024), hypertension, and diverticulitis who presented with left lower abdominal pain. She was found to have acute sigmoid diverticulitis and started on
antibiotics. She was also found to be in rapid A-fib and was given several doses of IV calcium channel jaqueline and IV beta-jaqueline. She was also volume resuscitated with IV fluids. Her heart rate improved but did not return to within normal
limits. Her home dose of metoprolol succinate 12.5 mg was increased to 50 mg twice daily. Her abdominal pain did resolve with antibiotics and IV fluids. She completed a 5-day course of antibiotics with IV Zosyn. She was able to tolerate p.o.
diet. She will need follow-up with a straight truck driver for eventual colonoscopy. For her rapid A-fib, she underwent CARISSA with cardioversion on 05/09 with successful zoroastrian of normal sinus rhythm with controlled heart rate around 60. She will
be continued on metoprolol succinate 50 mg twice daily with holding parameters for heart rate less than 50 or SBP less than 100). Her home amlodipine was discontinued in order to be able to uptitrate her beta-jaqueline to its current dose. She will
be continued on her home dose of Eliquis for anticoagulation for now. She will need close follow-up with her primary rubble placer. Reportedly she has been considered for Watchman device previously. At time of hospital discharge she was medically
stable. She will need to follow-up with her primary care physician.
Gen-AAOx3, NAD
HEENT-NC, AT, anicteric, clear oral mm
Neck-supple
CV-regular rhythm, heart rate controlled around 60, no M, +S1/S2
Lungs-clear B/L
Abd-soft, nondistended, less tender
Ext-no edema
Musculoskeletal-no cyanosis, clubbing
Skin-warm and dry
Neuro-grossly non-focal
Psych-calm, cooperative
Discharge Plan
-
Patient Disposition: Home (Routine Discharge)
Discharge Diagnosis/Procedures: A-fib with RVR, acute sigmoid diverticulitis
Diet: Low Residue
Activity Restrictions/Additional Instructions:
Ms. Koch is a 65-year-old female with a medical history of A-fib/flutter (ablation June 2024), hypertension, and diverticulitis who presented with left lower abdominal pain. She was found to have acute sigmoid diverticulitis and started on
antibiotics. She was also found to be in rapid A-fib and was given several doses of IV calcium channel jaqueline and IV beta-jaqueline. She was also volume resuscitated with IV fluids. Her heart rate improved but did not return to within normal
limits. Her home dose of metoprolol succinate 12.5 mg was increased to 50 mg twice daily. Her abdominal pain did resolve with antibiotics and IV fluids. She completed a 5-day course of antibiotics with IV Zosyn. She was able to tolerate p.o.
diet. She will need follow-up with a straight truck driver for eventual colonoscopy. For her rapid A-fib, she underwent CARISSA with cardioversion on 05/09 with successful zoroastrian of normal sinus rhythm with controlled heart rate around 60. She will
be continued on metoprolol succinate 50 mg twice daily with holding parameters for heart rate less than 50 or SBP less than 100). Her home amlodipine was discontinued in order to be able to uptitrate her beta-jaqueline to its current dose. She will
be continued on her home dose of Eliquis for anticoagulation for now. She will need close follow-up with her primary rubble placer. Reportedly she has been considered for Watchman device previously. At time of hospital discharge she was medically
stable. She will need to follow-up with her primary care physician.
Referrals:
NONE,* [Family Provider, Internal Medicine]
Dorcas Prince PA-C [Specified Professional Personl, Cardiology] - 05/26/25 2:40 pm
Referral Note: You have a cardiology follow-up appointment at the [place] office. Please call with questions
Prescriptions:
New
metoprolol succinate 50 mg Tablet Extended Release 24 Hr
50 mg PO BID 30 Days Qty: 60 0RF
Continued
acetaminophen [Tylenol] 325 mg Tablet
650 mg PO Q6HPRN PRN (Reason: mild pain)
ezetimibe [Zetia] 10 mg Tablet
10 mg PO QPM
Eliquis 5 mg Tablet
5 mg PO BID
Discontinued
amlodipine [Norvasc] 5 mg Tablet
5 mg PO DAILY
metoprolol succinate [Toprol XL] 25 mg Tablet Extended Release 24 Hr
12.5 mg PO DAILYPRN PRN (Reason: fast heart beat?)
Discharge Orders:
Discharge Patient (As Directed); Ordered 05/10/25
Ordered By: Shekhar Rios
Care Plan Goals
Care Plan Goals:
Problem: Readiness for enhanced knowledge related to diagnosis and treatment plan
Goal: Understand your diagnosis and treatment plan needs, including medications if applicable.
Instructions: Know your diagnosis, underlying causes and treatment plan options, including medications if applicable. Consult with your health care team to learn about your diagnosis and treatment plan, including medications if applicable.
Discharge Date and Time
Print Language: OCCITAN
--- NOTE | 2025-05-10 11:46 | PTCARENOTE ---
received patient this am,monitor shows SB, VSS. patient voices no complaints, patient hoping to be discharged to home today.
--- NOTE | 2025-05-10 12:12 | PTCARENOTE ---
D/C instructions given to patient , verbalizes understanding. INT x 2 D/C'd, telemetry D/C'd, personal belongings packed and sent with patient. patient is waiting for ride.
== END 2025-05-10 12:45 | disposition home or self-care (01) | DRG 641 ==
LOC: IVU 23:53
PROVIDERS: Clinical Nurse Specialist Family Health; Internal Medicine Cardiovascular Disease; Student in an Organized Health Care Education/Training Program; ADMITTING PHYSICIAN Internal Medicine; ATTENDING PHYSICIAN Internal Medicine; CONSULT PHYSICIAN Internal Medicine Cardiovascular Disease; EMERGENCY PHYSICIAN Emergency Medicine
PROC: B246ZZ4 Ultrasonography of Right and Left Heart, Transesophageal (ICD-10-PCS; 2025-05-09)
PROC: 5A2204Z Restoration of Cardiac Rhythm, Single (ICD-10-PCS; 2025-05-09)
DX: E86.0 Dehydration (principal); K57.32 Diverticulitis of large intestine without perforation or abscess without bleeding; I47.19 Other supraventricular tachycardia; E86.9 Volume depletion, unspecified; I48.0 Paroxysmal atrial fibrillation; I10 Essential (primary) hypertension; Z79.01 Long term (current) use of anticoagulants; Z88.1 Allergy status to other antibiotic agents; Z88.3 Allergy status to other anti-infective agents; E11.9 Type 2 diabetes mellitus without complications; E66.812 Obesity, class 2; Z68.35 Body mass index [BMI] 35.0-35.9, adult; E78.00 Pure hypercholesterolemia, unspecified; Z79.899 Other long term (current) drug therapy
CPT/HCPCS: 74177; 80053; 80061; 81003; 81015; 83690; 83735; 84443; 85025; 87086; 92960; 93005; 93306; 93312; 93320; 93325; 94660; 96361; 96375; 96376; 99291; Q9967

== ENCOUNTER → 2025-08-31 09:21 | Outpatient (REF) | payer MEDICARE, SELFPAY | LOC: RAD 09:21 | PROVIDERS: ATTENDING PHYSICIAN Nurse Practitioner Gerontology; FAMILY PHYSICIAN Family Medicine Geriatric Medicine; OTHER PHYSICIAN Internal Medicine Cardiovascular Disease | DX: Z95.818 Presence of other cardiac implants and grafts (principal) | CPT/HCPCS: 75572; Q9967 ==